=== PATIENT | female | born 1975 | race Caucasian/White ===

== ENCOUNTER 2016-12-09 18:39 | Inpatient (IN) | payer MEDICAID ==
[~2016-12-09] VITALS: Ht 158.8 cm; Wt 67.3 kg
--- NOTE | ~2016-12-09 | ER ---
PATIENT'S NAME: KEHINDE [facility] AGE: 41 Y [address] ROOM: [address] [address] [place] [facility] [place]: 12/09/2016 ER/Outpatient Report DISCHARGE DATE: FAMILY PHYSICIAN: Perico Cavazos MD ATTENDING PHYSICIAN: Júnior Marsh Time of Arrival: 1835 hours. Time of Evaluation: 1835 hours. CHIEF COMPLAINT: Abdominal pain. HISTORY OF PRESENT ILLNESS: The patient is a 41-year-old female, who presents to the emergency department today with a chief complaint of abdominal pain. She reports that it started last night initially. It kind of went away and then came back at 1330 hours today. She reports some nausea, vomiting 7-8 times. Denies any diarrhea or constipation. No fevers or chills. No blood in her stool, no dark tarry stools. Denies any burning with urination or pain with urination. It is crampy-type pain in the midepigastric, radiates down throughout her belly. PAST MEDICAL HISTORY: Colon cancer, radiation therapy with no chemo, insulin-dependent diabetes, epilepsy, seizure disorder, leukemia in 2013, gastroesophageal reflux, and dyslipidemia. PAST SURGICAL HISTORY: x2, colonoscopy, and ganglion cyst. SOCIAL HISTORY: The patient smokes half pack per day for the last 30 years. Denies any alcohol or illicit drug use. ALLERGIES: LATEX AND PROZAC. MEDICATIONS: Please see list. REVIEW OF SYSTEMS: All systems are reviewed by myself and are negative with the exception of those discussed in HPI and past medical history. PHYSICAL EXAMINATION: VITAL SIGNS: Weight 65.4 kg, blood pressure 115/77, pulse 102, respiratory PATIENT'S NAME: KEHINDE [facility] AGE: 41 Y [address] ROOM: [address] [address] [place] [facility] [place]: 12/09/2016 ER/Outpatient Report DISCHARGE DATE: FAMILY PHYSICIAN: Perico Cavazos MD ATTENDING PHYSICIAN: Júnior Marsh rate 16, temperature 98.3, oxygen saturation 97% on room air. GENERAL: The patient is a 41-year-old female, who appears stated age, in mild acute distress. HEENT: Head: Normocephalic, atraumatic. Pupils are equal, round, and reactive to light and accommodation. Extraocular motions are intact. Mucous membranes are mildly dry. NECK: Supple. There is no nuchal rigidity. CARDIOVASCULAR: Tachycardic. No murmurs, rubs, or gallops. LUNGS: Clear to auscultation bilaterally. No wheezes, rales, or rhonchi. ABDOMEN: Soft. Moderate tenderness to palpation in the midepigastric region. There is no rebound, rigidity, or guarding. Positive bowel sounds. MUSCULOSKELETAL: The patient moves all 4 extremities. 5/5 muscle strength. SKIN: Warm dry eyes. There are no rashes or lesions noted. LABORATORY DATA AND X-RAYS: Labs and x-rays are obtained. CBC is normal except for white blood cell count of 12.3, hematocrit 29.0, 7% bands. PTT is normal, PT is 11.5, INR is normal. Lactate is normal. Urine hCG is negative. Urinalysis shows 100 leukocyte esterase, 30 protein, 100 glucose, 10-20 wbc's, 20-50 epithelials, few bacteria. Lactate is normal. CMP is normal except for potassium 2.9, creatinine 1.2, glucose 283, otherwise unremarkable. Her LFTs are normal. Total bilirubin is normal. Lipase is elevated at 5477, procalcitonin is less than 0.05. EKG is obtained, is interpreted by myself, shows sinus rhythm with a rate of 95, normal axis, normal interval. No ST elevation, ST depression, T- wave inversion. CT scan of the abdomen and pelvis is obtained without IV contrast. I have discussed the results with radiologist, shows acute pancreatitis. IMPRESSION: 1. Acute pancreatitis. 2. Hypokalemia. 3. Poorly controlled diabetes mellitus. 4. History of dyslipidemia. 5. Initial visit. EMERGENCY DEPARTMENT COURSE: The patient was brought back to the examination room. Seen and evaluated by myself. IV is established. Laboratory analysis and imaging are obtained as described above. The patient is given a liter of normal saline. She was given 50 mcg of fentanyl IV, given 4 mg of Zofran IV, as well as another 50 mg of fentanyl. She was given another L of normal saline. She was then given 2 doses of Dilaudid 0.5 mg IV. I have discussed results with the patient and her significant other is at the bedside. The patient was written for 40 mEq of potassium chloride IV over 4 hours. I have recommended admission to the hospital for further evaluation and treatment management. The patient is PATIENT'S NAME: IAN BUSBY [facility] AGE: 41 Y [address] ROOM: [address] [address] [place] [facility] [place]: 12/09/2016 ER/Outpatient Report DISCHARGE DATE: FAMILY PHYSICIAN: Perico Cavazos MD ATTENDING PHYSICIAN: Júnior Marsh. Her questions were answered. I have discussed the case with Dr. Marsh, who is on-call for the patient's primary care doctor, Dr. Perico Cavazos. He has seen and evaluated the patient down here in the emergency department. He does agree to accept the patient. DISPOSITION: The patient is admitted under the care of Dr. Marsh in stable condition. DO JESSI MENDIETA/susan /[id number] d: 12/10/16527 t: 12/14/16603, OUTPATIENT REPORT
--- NOTE | ~2016-12-09 | DS ---
PATIENT'S NAME: IAN BUSBY [facility] AGE: 41 Y [address] ROOM: [address] [place], [place] [address] LOCATION: [facility] ADMIT DATE: 12/09/2016 Discharge Summary DISCHARGE DATE: 12/15/2016 FAMILY PHYSICIAN: Perico Cavazos MD ATTENDING PHYSICIAN: Jennifer Wilson CONSULTING PHYSICIAN: Dr. Simpson. DISCHARGE DIAGNOSES: 1. Acute pancreatitis. 2. Hypertriglyceridemia. 3. Diabetes mellitus, type 2, poorly-controlled. 4. Anemia. 5. Hypokalemia. 6. Seizure disorder. 7. Gastroesophageal reflux disease. DISCHARGE MEDICATIONS: 1. Amitriptyline 100 mg p.o. q.h.s. 2. TriCor 145 mg p.o. q.h.s. 3. Lasix 20 mg p.o. daily. 4. Neurontin 300 mg p.o. t.i.d. 5. Insulin Levemir 40 units subcu q.h.s. once daily. 6. Insulin subcu t.i.d. with meals per home sliding scale. 7. Keppra 750 mg 2 tablets p.o. twice daily. 8. Prilosec 20 mg p.o. daily. 9. Seroquel 20 mg p.o. q.a.m. 10. Seroquel 200 mg one and one half tab p.o. q.h.s. 11. Senna 1 tablet p.o. twice daily OTC. 12. Topamax 50 mg p.o. t.i.d. 13. ASA 81 mg p.o. daily. 14. Clonazepam 0.5 mg p.o. t.i.d. 15. Healthy Eye caplets 1 cap p.o. daily. 16. Claritin 10 mg p.o. daily. 17. Fish oil 2000 mg p.o. twice daily. 18. Calcium plus vitamin D 1 tablet p.o. b.i.d. 19. Cholecalciferol 10,000 units p.o. daily. HOSPITAL COURSE: Please refer to the admitting H and P. The patient was admitted on 12/09/2016. She was placed on an aggressive sliding scale of insulin. She was placed on the SPORTS ANCHOR of Dilaudid. The patient had an ultrasound of the abdomen on 12/10/2016, which showed diffusely echogenic liver consistent with fatty infiltration and a dilated portal venous confluence very likely indicating portal hypertension with mild splenomegaly, but no ascites. No gallstones. There was question of a urinary tract PATIENT'S NAME: IAN BUSBY [facility] AGE: 41 Y [address] ROOM: [facility] [place] [address] [facility] ADMIT DATE: 12/09/2016 Discharge Summary DISCHARGE DATE: 12/15/2016 FAMILY PHYSICIAN: Perico Cavazos MD ATTENDING PHYSICIAN: Jennifer Wilson infection, but the culture actually grew out contaminants. perinatal educator also came and visited with the patient. Ultimately, the patient was weaned off the SPORTS ANCHOR and continued with Percocet orally for pain management. The patient did have a drop in her hemoglobin down to 7.1 and recheck was 7.5. Occult stool testing was negative x2. GI was consulted. It was thought this was most likely a dilutional decrease in the hemoglobin. The stools were then tested for occult blood and came back as negative. The patient was ultimately transfused with 1 unit of packed RBCs on December 13 for hemoglobin of 6.7. The patient tolerated the blood transfusion well. The patient had a CT of the abdomen and pelvis done given her acute anemia. They noted a moderate inflammatory changes of the pancreas without evidence of hemorrhage and mild- to-moderate ascites with bilateral pleural effusions and the fatty liver was again noted with probable portal hypertension. After receiving 1 unit of packed RBCs, hemoglobin was back to 8.5. On the day of discharge, methemoglobin was 9.6. There was no evidence of blood loss. We suggested this to be continued to be followed as an outpatient. On 12/15/2016, her abdominal pain is improving, the patient was taking in oral, it was felt she was stable for discharge to her home with followup as an outpatient. Again, the hemoglobin was improving. I felt the ascites and pleural effusions seen on the CAT scan from the 13 of December was secondary to the pancreatitis and again can be followed up as outpatient. The patient is discharged to her own home on 12/15/2016. She is on no restrictions as far as activity. Weightbearing as tolerated. She should follow a diabetic diet. She should follow up with Dr. Cavazos on Wednesday12/21/2016. Appointment has been made for her at 10:45 a.m. The patient voiced understanding of this discharge plan. Discharge of this patient took greater than 35 minutes coordinating the discharge, reviewing medicines, and reviewing with the patient. SARAH ARCHER PA-C FOR MD NAPOLEON LINDO/susan /[id number] d: 12/16/16 0449 t: 12/30/16 1642, DISCHARGE SUMMARY
--- NOTE | ~2016-12-09 | HP ---
PATIENT'S NAME: IAN BUSBY [facility] AGE: 41 Y [address] ROOM: [address] [place] [id number] [place] [facility] [place]: 12/09/2016 History & Physical DISCHARGE DATE: FAMILY PHYSICIAN: Perico Cavazos MD ATTENDING PHYSICIAN: Nena Marsh DATE OF SERVICE: CHIEF COMPLAINT: Severe abdominal pain. HISTORY OF PRESENT ILLNESS: The patient is a 41-year-old patient of Dr. Perico Cavazos's who is very poorly compliant with coming into the clinic who presented to the emergency room by squad with severe abdominal pain. She states this came on this afternoon and progressively it has gotten worse. She started to have some vomiting this afternoon as well. She was diagnosed with pancreatitis in the ER; although, has never had a history of that. Her control of her multiple medical problems has been hampered by the fact she is very poorly compliant with actually seeing Dr. Cavazos in the clinic. Her last checkup for diabetes in the clinic was in December of 2015. Her A1c at that time was 10%. Apparently, she sees Eleni Martinez and has had a A1c with the last one being done in May, but that was elevated at 10.8. She is not able to tell me her insulin at this point; so, we are going to have get that from the pharmacy. She was found to be significantly hypokalemic as well, Of note, she has a history of a markedly elevated lipid panel with the last cholesterol being done in December of 2015. Her cholesterol at that time was 592 with triglycerides of 4201 and HDL of 27. Her VLDL was 840. PAST MEDICAL HISTORY: Significant for poorly-controlled type 2 diabetes mellitus, history of epilepsy, GERD, hypertriglyceridemia, sarcoidosis, as well as some psychiatric issues. They are not clearly delineated in the chart. MEDICATIONS: Her chronic medications include: 1. Topiramate 50 mg 3 times a day. 2. Levetiracetam 750 2 tablets twice a day. 3. Loratadine 10 mg one a day. 4. Omeprazole 20 mg one a day. 5. Vitamin D 5000 units 2 tablets at noon. 6. Aspirin 81 mg one a day. 7. Calcium plus D 1 tab in the morning and in the evening. 8. Clonazepam 0.5 mg 3 times a day. 9. TriCor 145 one p.o. q.h.s. PATIENT'S NAME: IAN BUSBY [facility] AGE: 41 Y [address] ROOM: [address] [address] [place] [facility] [place] DATE: 12/09/2016 History & Physical DISCHARGE DATE: FAMILY PHYSICIAN: Perico aCvazos MD ATTENDING PHYSICIAN: Nena Marsh 10. Amitriptyline 100 mg 1 p.o. q.h.s. 11. Quetiapine 200 mg 1 tab in the morning and 1.5 at bedtime. 12. Furosemide 20 mg one tablet daily. 13. Fish oil 1000 mg 2 tablets twice a day. 14. Gabapentin 300 mg one p.o. t.i.d. 15. She does take NovoLog and some other sort of insulin she is not sure what, but it sounds like maybe it is Levemir. She is unsure of her dosages at this point. ALLERGIES: INCLUDE LATEX GLOVES AND PROZAC. PRIOR SURGERIES: She has had x2. She has had 2 colonoscopies one in 2001 and one in 2013 and intestinal surgery in 2001 and a vaginal delivery. She also has a history of an ascending colon cancer, status post radiation therapy, PTSD, history of low back pain, and a prior history of [id number] DVT. SOCIAL HISTORY: She is here with her . She is a current everyday caffeine user and a current everyday smoker. Denies any alcohol use at all as far as risk factor for pancreatitis. FAMILY HISTORY: Alzheimer's disease in paternal grandfather, breast cancer in aunt, mother, and sister, type 2 diabetes mellitus in her father, and history of stroke in her paternal grandmother. REVIEW OF SYSTEMS: Really difficult to obtain as the patient is a very poor historian. Specifically, she denies any significant chest pain or pressure, shortness of breath, orthopnea, or PND. She has had no melena, hematochezia, or bright red per rectum. No urinary symptoms at this point. PHYSICAL EXAMINATION: VITAL SIGNS: Weight 65.4 kg, taken, blood pressure 115/77, pulse 102, respirations 16, temperature 98.3, and O2 saturation 97% on room air. GENERAL: Nontoxic-appearing female in mild amount of distress, secondary to pain. HEENT: Head: Normocephalic and atraumatic. Ears, TMs are clear and intact bilaterally. Nose patent. Throat clear. NECK: Supple without lymphadenopathy, JVD, thyromegaly, or bruits. HEART: Regular rate and rhythm without audible murmur. PATIENT'S NAME: IAN BUSBY [facility] AGE: 41 Y [address] ROOM: [place] [address] [place] [facility] [place] DATE: 12/09/2016 History & Physical DISCHARGE DATE: FAMILY PHYSICIAN: Perico Cavazos MD ATTENDING PHYSICIAN: Nena Marsh LUNGS: Clear to auscultation bilaterally without wheezes, rhonchi, or rales. ABDOMEN: Soft, markedly tender in the epigastric region, and kind of globally throughout, she actually hand waves several times during the exam. EXTREMITIES: No clubbing, cyanosis, or edema. NEURO: No focal deficits. LABORATORY DATA: Her lactate level is 1.1. Her urinalysis shows 10-20 white cells, negative for reds, 20-50 epi's, beta HCG is negative, few bacteria; so, clearly this is contaminated. Sodium 140, potassium 2.9, chloride 106, CO2 23, glucose 283, BUN 16, creatinine 1.2, total protein 6.9, albumin 3.8, bilirubin 0.5, alk phos 44, AST 12, ALT 26, estimated GFR is 49, and lipase is 5477. It should be noted that the last time in the clinic that she had a GFR done it was 55.3 in May of 2016. Procalcitonin level is less than 0.05. White cell count is 12.3, hemoglobin 10.2, hematocrit 29.0%, and platelet count 264,000. PTT is 26, PT is 11.5, INR is 1.1. CT of the abdomen and pelvis shows acute pancreatitis with possible gallstones, ultrasound could be better to evaluate that, but has not showed to have any biliary dilatation. ASSESSMENT AND PLAN: A 41-year-old white female with the following problems: 1. Acute pancreatitis, most likely brought on by her markedly elevated triglyceride level. The last time triglycerides were checked they were greater over 4000 and that was while she was taking TriCor. Clearly, this is not a good option for her to continue with this as it is not controlling it; however, we will go ahead and recheck the triglycerides and fasting lipid in the morning and see what that looks like. Certainly, she has a primary disorder of lipoprotein metabolism and in terms of triglycerides are greater than 500, they can increase risk of pancreatitis especially when they are this high. Maybe need to consider apheresis to get that triglycerides down depending where they are at in the morning. We will watch to keep her n.p.o., give her intravenous fluids, give her pain support, nausea medication, and then see how she does with this. 2. Severe hypertriglyceridemia. Again, this is more than likely represents a primary hypertriglyceridemia possibly a genetic disorder of lipid mutation with a Marlon classification 1, which is probably the most likely source of this. We will defer on further treatment at that to Dr. Cavazos. 3. Poorly-controlled insulin-dependent type 2 diabetes mellitus with most recent A1c in May.8. Clearly, she needs to continue to work actually with Dr. Cavazos not just with Eleni Martinez to try and get those blood sugars under better control. We will just go to sliding scale for now to keep that in check with Accu-Cheks q.i.d. in the interim. 4. History of gastroesophageal reflux disease, overall stable. PATIENT'S NAME: IAN BUSBY [facility] AGE: 41 Y [address] ROOM: [place] [address] [place] [facility] [place] DATE: 12/09/2016 History & Physical DISCHARGE DATE: FAMILY PHYSICIAN: Perico Cavazos MD ATTENDING PHYSICIAN: Nena Marsh 5. A questionable history of sarcoid, no further treatment at this point. 6. History of epilepsy, obviously, we will need to watch getting her seizure medicines [id number], but for now, we will keep her absolutely n.p.o. 7. Undefined psychiatric illness. We will see if we can get more records as far as what her actual psych history is. Defer that to Dr. Cavazos. There is no documentation in the clinic chart regarding that. 8. Posttraumatic stress disorder and borderline personality disorder. Continue with the current psychiatric medications. 9. History of peripheral neuropathy, secondary type 2 diabetes mellitus. Continue to work towards tight blood sugar control. 10. History of colon cancer. Defer at this time with that. Clearly with her history of her severe elevated triglycerides, the morbidity and mortality with this type of pancreatitis is higher. She does sound like she did have some stones present, but nothing that would suggest that this is actually a gallstone related issues. Both her and her voiced understanding with that plan at this time. NENA MARSH MD TAB/modl /[id number]: [id number] T: [id number] HISTORY & PHYSICAL
[~2016-12-09 18:39] MED LIST changes: -LEVAQUIN750 MG PO; -NAPROSYN250 MG PO; -NEURONTIN100 MG PO; -NYSTATIN1 EAC1; -SENOKOT-S TABL1 EACH PO; -TESSALON PERLE100 MG PO; -ZYVOX600 MG PO
[2016-12-09 19:12] LABS: BILIRUBIN URINE NEGATIVE (NEGATIVE); BLOOD URINE NEGATIVE /UL (NEGATIVE); COLOR URINE YELLOW (YELLOW); GLUCOSE URINE 100 mg/dL (NEGATIVE); KETONE URINE NEGATIVE (NEGATIVE); LEUKOCYTES URINE 100 /UL (NEGATIVE); NITRITE URINE NEGATIVE (NEGATIVE); PROTEIN URINE 30 mg/dL (NEGATIVE); TURBIDITY URINE 1+ (CLEAR); UROBILINOGEN URINE NORMAL (NORMAL)
[2016-12-09 19:19] LABS: HEMOGLOBIN 10.2 g/dL (10.0-15.0); MCH 32.9 pg (27.0-34.0); MCHC 35.2 gm/dL (32.0-36.5); MCV 93.5 fl (83.0-98.0); MPV 10.1 fl (9.4-12.4); PLATELET COUNT 264 K/uL (150-450); RDW-CV 15.6 % (11.9-14.6); WBC 12.3 K/uL (4.0-11.0)
[2016-12-09 19:23] LABS: BACTERIA URINE FEW (NEGATIVE); EPITHELIAL URINE 20-50 #/HPF (NEGATIVE); RBC URINE NEGATIVE #/HPF (NEGATIVE)
[2016-12-09 19:27] LABS: INR - (THERAPEUTIC) 1.1 (0.9-1.1); PROTIME 11.5 SECONDS (9.6-11.1); PTT 26 SECONDS (25-32)
[2016-12-09 19:35] LABS: ALBUMIN 3.8 gm/dL (3.5-5.0); CALCIUM 9.2 mg/dL (8.5-10.5); CREATININE 1.2 mg/dL (0.5-1.1); TOTAL PROTEIN 6.9 g/dL (6.0-8.4)
[2016-12-09 19:39] LABS: ANION GAP 13.9 (10.0-19.0); POTASSIUM 2.9 mMol/L (3.7-5.1); TOTAL BILIRUBIN 0.5 mg/dL (0.0-1.5)
[2016-12-09 20:01] LABS: ABSOLUTE NEUTROPHIL CT (ANC) 11.3 K/uL (1.8-7.8); BANDED NEUTROPHIL # 0.9 K/uL (0.0-0.1); BANDED NEUTROPHILS % 7 %; LYMPHOCYTE # 0.4 K/uL (0.8-4.0); LYMPHOCYTE % 3 %; MONOCYTE # 0.2 K/uL (0.0-1.0); SEGMENTED NEUTROPHIL # 10.5 K/uL (1.8-7.8); SEGMENTED NEUTROPHIL % 85 %
[2016-12-10 06:04] LABS: BASOPHIL % 0.2 %; EOSINOPHIL # 0.2 K/uL (0.0-0.5); EOSINOPHIL % 1.3 %; HEMATOCRIT 31.1 % (33.0-46.0); HEMOGLOBIN 10.3 g/dL (10.0-15.0); IMMATURE GRANULOCYTE # 0.1 K/uL (0.0-0.3); LYMPHOCYTE # 0.6 K/uL (0.8-4.0); LYMPHOCYTE % 4.2 %; MCH 32.5 pg (27.0-34.0); MCHC 33.1 gm/dL (32.0-36.5); MCV 98.1 fl (83.0-98.0); MONOCYTE # 0.8 K/uL (0.0-1.0); MONOCYTE % 5.7 %; MPV 10.5 fl (9.4-12.4); NEUTROPHIL # (ANC) 11.9 K/uL (1.8-7.8); NEUTROPHIL % 87.6 %; NRBC % 0.1 /100WBC (0-0.00); PLATELET COUNT 298 K/uL (150-450); RBC 3.17 M/uL (3.50-5.50); RDW-CV 16.4 % (11.9-14.6); WBC 13.6 K/uL (4.0-11.0)
[2016-12-10 06:26] LABS: ALBUMIN 3.5 gm/dL (3.5-5.0); ANION GAP 12.4 (10.0-19.0); CREATININE 1.1 mg/dL (0.5-1.1); POTASSIUM 3.4 mMol/L (3.7-5.1); TOTAL PROTEIN 6.7 g/dL (6.0-8.4)
[2016-12-10 06:30] LABS: TOTAL BILIRUBIN 0.8 mg/dL (0.0-1.5)
--- NOTE | 2016-12-10 07:21 | NUR ---
SIGNIFICANT EVENT: Patient oriented, more sleepy since MOTOR RUNNER started. IV to L) FA - NS at 125. Dilaudid MOTOR RUNNER is 0.2 demand, no bolus, 8 minute lockout. BF at bedside. VSS on 1L. KCl also running. NPO. Cooperative with cares.
--- NOTE | 2016-12-10 13:44 | NUR ---
Met with Alicia at bedside this morning. Introduced myself and explained to her my role in her care. Alicia states she lives at [facility]. She has a fiance named Bryan and he helps take care of her. She states that Bryan works department head and if he is not at work he is at her apartment with her. She states she has three children, a 21 yo daughter that lives with a grandparent, a 17 and 12 year olds that live with their father. She states that she is able to care for herself and take care of all her needs on her own. Her plan is to return to her apartment at discharge. I will continue to follow and offer supports as needed.
--- NOTE | 2016-12-10 15:49 | NUR ---
Significant Event: Pt c/o constant pain when asked, drowsy and sometimes can't keep her eyes open. 1 assist to br. NPO. Concerned that cognitively pt doesn't understand pain management and proper use of CLINICAL TRANSPLANT COORDINATOR. Boyfriend at bedside, very anxious gentleman and hovers over her frequently. Liver enzymes elevated. Dr. Ton Cavazos called, new order to have hospitalists to consult and take over pt cares. To dc CLINICAL TRANSPLANT COORDINATOR, but pt started to cry and scream and refused to have it removed. New orders from hospitalists: continue CLINICAL TRANSPLANT COORDINATOR, RUQ US, lipid panel now, increase IV to 250ml/hr for 24 hrs then decrease to 200ml/hr. May have ice chips. Ambulate TID. Follow up:
--- NOTE | 2016-12-11 04:26 | NUR ---
Pt arrived to floor at 2145 accompanied by staff and significant other. Pt A&Ox3, follows commands, strength equal bilat, PERRL. No seizures this shift. Insulin gtt protocol as ordered. Diluadid HIGH PRESSURE KETTLE OPERATOR 0.2 mg demand only with 8 min lockout, controlling pain. NPO except ice chips. Cooperative with cares.
--- NOTE | 2016-12-11 07:42 | NUR ---
SIGNIFICANT EVENT: [facility] staff came to [facility] to take patient by bed at approx 2130. Report given to [facility] nurse, Shania. Alert & oriented. Patient is tachycardic, other VSS on 1L. Dilaudid SURVEILLANCE OBSERVER infusing .2 demand, 8 min lockout. Seizure event at approx 1745 - patient indicates she has epilepsy, has not been taking oral meds d/t NPO status, nausea. PIV to L) arm infusing NS at 250 mL/hr. Sig other at bedside, very attentive. Cooperative with cares.
--- NOTE | 2016-12-11 11:44 | NUR ---
Diabetes consult: Patient is well [facility] to the [facility] and previously saw KAYY Ley for insulin samples and management. The patient cannot recall the names of the insulin she is taking at home. She tells me that she has a long acting insulin and a short acting insulin. She states she takes 60 units of the long acting twice daily and 65 units of the short acting with meals. I probed further inquiring how long a short acting insulin pen lasts her and she tells me "several days". The patient became increasingly more anxious the more questions I asked. I doubt the patient the excessive dose of 65 units with meals. The patient last saw Eleni Potter on 08/2016. At the time, dictation indicates the patient was taking Toujeo 80 units at HS and Novolog correction. A custom correction scale was found in the patients old records and transcribed to the physician progress note for review. Currently the patient's blood sugar are well controlled. She is on the insulin gtt at this time. Current A1C is 6.7%. Insulin doses were shared with the patient's primary nurse.
[2016-12-11 12:19] LABS: BILIRUBIN URINE NEGATIVE (NEGATIVE); BLOOD URINE NEGATIVE /UL (NEGATIVE); COLOR URINE YELLOW (YELLOW); GLUCOSE URINE NEGATIVE (NEGATIVE); KETONE URINE NEGATIVE (NEGATIVE); LEUKOCYTES URINE 100 /UL (NEGATIVE); NITRITE URINE NEGATIVE (NEGATIVE); PH URINE 6.5 (4.0-8.0); PROTEIN URINE NEGATIVE (NEGATIVE); SPEC GRAVITY URINE 1.005 (1.003-1.035); TURBIDITY URINE CLEAR (CLEAR); UROBILINOGEN URINE NORMAL (NORMAL)
[2016-12-11 12:32] LABS: RBC URINE NEGATIVE #/HPF (NEGATIVE)
[2016-12-11 12:33] LABS: BACTERIA URINE MODERATE (NEGATIVE); MUCUS URINE 1+ (NEGATIVE)
--- NOTE | 2016-12-11 16:55 | NUR ---
Significant Event:PT IS AAOX3. MAEW. NO C/O NUMBNESS OR TINGLING. NO SEIZURES NOTED TODAY. LUNG SOUNDS ARE CLEAR AND DIMINISHED. ON RA. ETCO2 MONITORING. C/O EPIGASTRIC AND ABDOMINAL PAIN. ON MANUFACTURING SHIFT SUPERVISOR. DEMAND DECREASE DUE TO PATIENT BECOMING VERY DROWSY. ALSO STARTED BECOMING HYPOTENSIVE 92/60. IV TO L) HAND AND FA RUNNING. ON CLEAR LIQUID DIET. Q2H ACCUCHECKS. INSULIN GTT RUNNING. ORDER BY MD FOR NO BED ALARM. Follow up:MONITOR LOC AND BP
[2016-12-12 04:46] LABS: BASOPHIL % 0.5 %; EOSINOPHIL # 0.3 K/uL (0.0-0.5); EOSINOPHIL % 5.1 %; IMMATURE GRANULOCYTE % 0.7 %; LYMPHOCYTE # 0.4 K/uL (0.8-4.0); LYMPHOCYTE % 6.1 %; MCV 99.5 fl (83.0-98.0); MONOCYTE # 0.5 K/uL (0.0-1.0); MONOCYTE % 7.9 %; MPV 10.3 fl (9.4-12.4); NEUTROPHIL # (ANC) 4.7 K/uL (1.8-7.8); NEUTROPHIL % 79.7 %; NRBC % 0 /100WBC (0-0.00); RDW-CV 16.7 % (11.9-14.6); WBC 5.9 K/uL (4.0-11.0)
[2016-12-12 04:47] LABS: HEMOGLOBIN 7.1 g/dL (10.0-15.0); MCH 33.6 pg (27.0-34.0); MCHC 33.8 gm/dL (32.0-36.5); PLATELET COUNT 204 K/uL (150-450); RBC 2.11 M/uL (3.50-5.50)
[2016-12-12 05:06] LABS: ALBUMIN 2.5 gm/dL (3.5-5.0); BLOOD UREA NITROGEN 6 mg/dL (6-24); CO2 21 mMol/L (22-32); CREATININE 0.8 mg/dL (0.5-1.1); ESTIMATED GFR (MDRD EQUATION) > 60; PHOSPHORUS 2.6 mg/dL (2.5-4.9)
[2016-12-12 05:09] LABS: ANION GAP 11.8 (10.0-19.0); CALCIUM 7.1 mg/dL (8.5-10.5); CHLORIDE 117 mMol/L (96-110); POTASSIUM 2.8 mMol/L (3.7-5.1); SODIUM 147 mMol/L (135-145)
[2016-12-12 06:10] LABS: HEMATOCRIT 22.3 % (33.0-46.0)
[2016-12-12 06:11] LABS: HEMOGLOBIN 7.5 g/dL (10.0-15.0)
--- NOTE | 2016-12-12 07:21 | NUR ---
Significant Event: Patient is alert and oriented x3. Follows commands. Pupils are 3mm and brisk. Moderate strength. Sinus rhythm. Room Air. Clear liquid diet. Abdomen is slightly firm-pain is localized in the abd and the lower back. Insulin drip-Accu checks q2h. PIV in left hand and FA with D5 1/2 NS at 200 ml/hr. The patients mood changes easily- will become defensive if she can hear people talking outside the room. Up with 1A and GB. Follow up: GI consult today.
[2016-12-12 18:31] LABS: HEMATOCRIT 22.3 % (33.0-46.0)
[2016-12-12 18:32] LABS: HEMOGLOBIN 7.2 g/dL (10.0-15.0)
[2016-12-12 18:46] LABS: ALBUMIN 2.7 gm/dL (3.5-5.0); BLOOD UREA NITROGEN 4 mg/dL (6-24); CO2 18 mMol/L (22-32); CREATININE 0.8 mg/dL (0.5-1.1); ESTIMATED GFR (MDRD EQUATION) > 60; MAGNESIUM 1.5 mg/dL (1.3-2.6); PHOSPHORUS 2.2 mg/dL (2.5-4.9); POTASSIUM 3.6 mMol/L (3.7-5.1)
[2016-12-12 18:48] LABS: ANION GAP 13.6 (10.0-19.0); CALCIUM 7.2 mg/dL (8.5-10.5); CHLORIDE 119 mMol/L (96-110); SODIUM 147 mMol/L (135-145)
--- NOTE | 2016-12-12 19:00 | NUR ---
Significant Event: Patient's v/s stable. She is alert and orientated. On room air, sinus to sinus tachycardia. Patient has IV to left hand and left forearm and left inner arm running D5NS at 200ml/hr and insulin drip per protcol. Patient also recieved 80meq IV potassium chloride. Had bowel movement. Pain controlled by PO medication. Follow up: Continue to monitor.
[2016-12-13 05:01] LABS: HEMOGLOBIN 6.7 g/dL (10.0-15.0)
--- NOTE | 2016-12-13 05:24 | NUR ---
Significant Event: Patient is alert and oriented x3. Follows commands. Denies N/T. PERRLA-3mm and brisk. Moderate strength. SR- can get tachycardic at times when anxious. Room air. Soft diet. Last BM 3/4. Up with 1A and GB. PIV in left hand with d5 1/2 NS at 200. Accu checks AC-TID. Abd is round and distended. Takes pills whole with water. Patient has requested to have nurse to nurse and doctor conversations in room- that way she can be apart of what is happening. Follow up: Pain control. Accu checks.
[2016-12-13 12:22] LABS: HEMATOCRIT 23.5 % (33.0-46.0); MCH 33.2 pg (27.0-34.0); MCHC 32.3 gm/dL (32.0-36.5); MCV 102.6 fl (83.0-98.0); MPV 10.1 fl (9.4-12.4); PLATELET COUNT 202 K/uL (150-450); RBC 2.29 M/uL (3.50-5.50); RDW-CV 16.4 % (11.9-14.6); WBC 3.7 K/uL (4.0-11.0)
[2016-12-13 12:23] LABS: HEMOGLOBIN 7.6 g/dL (10.0-15.0)
[2016-12-13 12:51] LABS: LYMPHOCYTE # 0.2 K/uL (0.8-4.0); LYMPHOCYTE % 6 %; MONOCYTE # 0.3 K/uL (0.0-1.0); SEGMENTED NEUTROPHIL % 81 %
--- NOTE | 2016-12-13 13:21 | NUR ---
A - PT SCREENED D/T LOS. HT: 62" WT: 147# BMI: 25.9 LABS: ACCUCHECK WNL-REAS, NA 147, K+ 3.6, GLU 102, BUN/CR 4/0.8, ALB 2.7, PHOS 2.2, AMYLASE 123, LIPASE 801, WBC 3.7, HGB/HCT 7.6/23.5 MEDS: KEPPRA, LEVEMIR, BACTRIM DX, PROTONIX, NAUSEA, D5NS DIET: SOFT (NO TEETH). INTAKE: MOSTLY 75-100% NEEDS: 1654-0217 KCAL (20-25 KCAL/KG), 67-80 G PRO (1-1.2 G/KG), 2010 ML FLUID (30 ML/KG) D - NO NUTRITION RELATED DIAGNOSIS IDENTIFIED AT THIS TIME. I - GOAL FOR INTAKE TO REMAIN 75-100% FOR DURATION OF STAY. M/E - WILL ASSIST NEEDED.
[2016-12-13 17:02] LABS: HEMATOCRIT 27.7 % (33.0-46.0)
--- NOTE | 2016-12-13 19:27 | NUR ---
Significant Event: Alert and oriented X 3. Mild MR. Patient needs verbal cues throughout cares. All discussion concerning patient needs to be done in front of patient. Patient has a fear that everyone is talking about her. Explain what you are doing and giving when with patient. AC Accuchecks moderate sliding scale. Allow patient to poke her own finger for test. Patient also prefers to inject herself when given insulin. Levemier given at night. 1 unit of blood given for Hgb of 6.7. Patient tolerated blood well. Hgb after transfusion was 9.0. [address] of abdomen & pelvis done today. Results show mild to moderate ascites, mild bilateral PE and mild pancreatitis. IV to left hand, saline locked. Abdomen distended, round, and sore. Last bowel movement 12/12/16. SBP 120's and 130's. HR 70's & 80's. Patient does have mood swings at times. Pleasant and cooperative with cares. Follow up:
--- NOTE | 2016-12-14 04:44 | NUR ---
NEURO: Mild MR. Reported mood swings- did not see that on this shift. A&O. No s/s of seizures this shift. CARDIO: Tele. NSR. No edema. RESP: RA. Clear/diminished. GI/: Regular diet. Accucheck AC. Voids independently. BM last night- last occult sent to lab - negative. SKIN: No skin issues. IV: Left hand. SL. ACTIVITY: Up ad charles in room. PAIN: Percocet Q6H PRN. Last given at 2105. PLAN: Discharge Wednesday.
[2016-12-14 06:16] LABS: HEMATOCRIT 25.9 % (33.0-46.0); HEMOGLOBIN 8.5 g/dL (10.0-15.0)
[2016-12-14 06:46] LABS: ALBUMIN 2.9 gm/dL (3.5-5.0); ANION GAP 14.6 (10.0-19.0); CALCIUM 8.8 mg/dL (8.5-10.5); CHLORIDE 115 mMol/L (96-110); CO2 19 mMol/L (22-32); ESTIMATED GFR (MDRD EQUATION) > 60; PHOSPHORUS 3.4 mg/dL (2.5-4.9); POTASSIUM 3.6 mMol/L (3.7-5.1); SODIUM 145 mMol/L (135-145)
[2016-12-14 06:47] LABS: BLOOD UREA NITROGEN 9 mg/dL (6-24)
--- NOTE | 2016-12-14 19:13 | NUR ---
Significant Event:VSS, rates pain 5-8/10, Percocet 1 tab x 2, last dose at 1340. Abdomen slightly firm, tender to touch. Bowel sounds present, no BM today. No sx activity this shift. Neuros WNL. Follow up:Labs in a.m., possible DC to home
--- NOTE | 2016-12-15 03:09 | NUR ---
Significant Event: Patient is alert and oriented x 3. Denies numbness or tingling. Irritable/anxious at times. C/O pain to abdomen. Received Percocet for pain. PERRL. Moves spontaneously and follows commands. Independent in room. VSS. Afebrile. On room air. Lungs clear. Bowel sounds active. No BM this shift. Abdomen slightly firm and tender to touch. IV SL with no complications. Follow up: home today, pain management
[2016-12-15 04:51] LABS: HEMATOCRIT 28.5 % (33.0-46.0); HEMOGLOBIN 9.6 g/dL (10.0-15.0)
[2016-12-15 05:07] LABS: ALBUMIN 3.2 gm/dL (3.5-5.0); ANION GAP 13.6 (10.0-19.0); CALCIUM 9.5 mg/dL (8.5-10.5); CREATININE 1.1 mg/dL (0.5-1.1); PHOSPHORUS 4.1 mg/dL (2.5-4.9); POTASSIUM 3.6 mMol/L (3.7-5.1)
[2016-12-15] MEDS ORDERED: SENOKOT-S TABL1 EACH PO (11:09)
== END 2016-12-15 12:37 | disposition disaster alternative care site (69) | DRG 439 ==
LOC: GMED 18:39 → GMSU 20:48 → GNTU 20:48
PROVIDERS: Emergency Medicine; Family Medicine; Hospitalist; Physician Assistant; Student in an Organized Health Care Education/Training Program; ADMIT Family Medicine
PROC: 30233N1 Transfusion of Nonautologous Red Blood Cells into Peripheral Vein, Percutaneous Approach (ICD-10-PCS; principal; 2016-12-13)
DX: K85.90 Acute pancreatitis without necrosis or infection, unspecified (principal); N39.0 Urinary tract infection, site not specified; J90 Pleural effusion, not elsewhere classified; R18.8 Other ascites; E11.65 Type 2 diabetes mellitus with hyperglycemia; Z79.4 Long term (current) use of insulin; F17.210 Nicotine dependence, cigarettes, uncomplicated; E87.6 Hypokalemia; G40.909 Epilepsy, unspecified, not intractable, without status epilepticus; K21.9 Gastro-esophageal reflux disease without esophagitis; E78.1 Pure hyperglyceridemia; D86.9 Sarcoidosis, unspecified; Z79.82 Long term (current) use of aspirin; Z85.038 Personal history of other malignant neoplasm of large intestine; Z86.718 Personal history of other venous thrombosis and embolism; F43.10 Post-traumatic stress disorder, unspecified; D64.9 Anemia, unspecified
CPT/HCPCS: J1170; J1940; J1953; J2405; J3010; J3475; J3480; J7030; J7040; J7050; J7121; P9016

== ENCOUNTER → 2016-12-09 | Outpatient (CLI) | payer MEDICAID ==
[~2016-12-09] MED LIST: ACETAMINOPHEN650 M2 PO; ASPIR 8181 MG PO; BACTROBAN 2% OI22 GM TOP; CALCIUM 600 +1 EACH PO; CLARITIN10 MG PO; ELAVIL100 MG PO; ELAVIL50 MG PO; FISH OIL1000 MG PO; GLUCOPHAGE500 MG PO; GLUCOSE1 EACH PO; HEALTHY EYES C1 EACH PO; INVOKANA300 MG PO; K-TAB ER20 MEQ PO; KEPPRA750 MG PO; KLONOPIN0.5 MG PO; KLOR-CON 1010 MEQ PO; LASIX20 MG PO; LASIX40 MG PO; LEVAQUIN500 MG PO; LEVAQUIN750 MG PO; LEVEMIR FL100 UNIT/1 SUB-Q; MAGNESIUM-VIT1 EACH PO; MINIPRESS1 M1 PO; MIRALAX17 GM PO; NAPROSYN250 MG PO; NEURONTIN100 MG PO; NEURONTIN300 MG PO; NICODERM (HABIT14 MG PO; NOVOLOG100 UNIT/M SUB-Q; NYSTATIN1 EAC1; OSCAL + D500 MG PO; PRILOSEC20 M1; PRILOSEC20 MG PO; PROTONIX40 MG PO; PYRIDIUM200 MG PO; SENOKOT-S TABL1 EACH PO; SEROQUEL200 MG PO; SEROQUEL300 MG PO; TESSALON PERLE100 MG PO; THERAGRAN-M1 TAB PO; TOPAMAX50 MG PO; TRICOR 160 MG160 MG PO; TRICOR145 MG PO; TYLENOL325 MG PO; VASCEPA1 GM PO; VITAMIN D1000 UNIT PO; VITAMIN D35000 UNI1 PO; VITAMIN D5000 UNIT; ZYVOX600 MG PO
== END | disposition disaster alternative care site (69) ==
LOC: GAMB 18:17
DX: R10.9 Unspecified abdominal pain (principal); R10.33 Periumbilical pain; G40.909 Epilepsy, unspecified, not intractable, without status epilepticus; Z79.82 Long term (current) use of aspirin; Z79.899 Other long term (current) drug therapy; Z88.6 Allergy status to analgesic agent; Z88.8 Allergy status to other drugs, medicaments and biological substances; Z91.040 Latex allergy status
CPT/HCPCS: A0425; A0427; J1170; J2405; J3010; J7030

== ENCOUNTER 2016-12-29 06:40 | Inpatient (IN) | payer MEDICAID ==
[~2016-12-29] VITALS: Ht 157.5 cm; Wt 63.4 kg
--- NOTE | ~2016-12-29 | ER ---
PATIENT'S NAME: IAN BUSBY [facility] AGE: 41 Y [address] ROOM: [place] [address] LOCATION: GPCU ADMIT DATE: 12/29/2016 ER/Outpatient Report DISCHARGE DATE: FAMILY PHYSICIAN: Perico Cavazos MD ATTENDING PHYSICIAN: RIO CRANE V TIME OF ARRIVAL: 0640 hours. TIME SEEN: 0640 hours. IDENTIFICATION: A 41-year-old female. CHIEF COMPLAINT: Illness. HISTORY OF PRESENT ILLNESS: The patient is a 41-year-old female, who was just hospitalized recently from December 09 to December 15 with acute pancreatitis. Today, she came in by ambulance with complaints of not feeling well. She has had fever, chills, cough which is nonproductive, short of breath, and chest pain. Onset of symptoms 3 days ago. ALLERGIES: TO PROZAC. CURRENT MEDICATIONS: The patient did not bring her list with her but states it is the same as her discharge medications which included. 1. Amitriptyline 100 mg at bedtime. 2. Tricor 145 mg at bedtime. 3. Lasix 20 mg daily. 4. Neurontin 300 mg t.i.d. 5. Levemir insulin 40 units subcu once daily. 6. Insulin sliding scale t.i.d. 7. Keppra 750 two tablets twice daily. 8. Prilosec 20 mg daily. 9. Seroquel 200 mg q.a.m. and 200 mg 1-1/2 tablet at bedtime. 10. Senna twice daily. 11. Topamax 50 mg t.i.d. 12. Aspirin 81 mg daily. 13. Clonazepam 0.5 mg t.i.d. 14. Healthy Eye capsules one daily. PATIENT'S NAME: IAN BUSBY [facility] AGE: 41 Y [address] ROOM: [place] [address] LOCATION: GPCU ADMIT DATE: 12/29/2016 ER/Outpatient Report DISCHARGE DATE: FAMILY PHYSICIAN: Perico Cavazos MD ATTENDING PHYSICIAN: RIO CRANE V 15. Claritin 10 mg daily. 16. Fish oil 2000 international units twice daily. 17. Calcium plus vitamin D b.i.d. 18. Cholecalciferol 10,000 units daily. MEDICAL PROBLEMS: Diabetes, insulin requiring. History of noncompliance, generalized tonic- clonic seizure activity, hypertriglyceridemia, anemia, hypokalemia. History of ascending colon cancer, status post radiation therapy. Gastroesophageal reflux disease, sarcoidosis, depression, PTSD, small DVT in the left calf area. PRIOR SURGERIES: sections x2. Colonoscopy. FAMILY HISTORY: Positive for breast cancer in the patient's mother. SOCIAL HISTORY: The patient lives at home. She has a significant other. Tobacco use, half pack per day for 25 years. Alcohol use, denies. Drug use, denies. She states she stopped smoking 2 weeks ago. REVIEW OF SYSTEMS: All systems reviewed and negative other than what is noted in the HPI. PHYSICAL EXAMINATION: GENERAL: A 41-year-old female, in moderate distress. HEENT: Head: Normocephalic, atraumatic. Ears: TMs translucent, both ears. Eyes: Pupils equal and reactive to light and accommodation. Conjunctivae clear. Nose: Mucosa pink. No lesions. Mouth: No lesions. Pharynx benign. Pharynx mildly erythematous. Mucous membranes are dry. Her tongue is red from punch. NECK: Supple. No lymphadenopathy. No nuchal rigidity. LUNGS: Clear to auscultation. Breath sounds are diminished in the bases. HEART: Sinus tachycardia. No murmur, rub, or gallop. ABDOMEN: Bowel sounds present. Soft, nondistended, nontender. SKIN: [place], warm, and dry. No lesions or rashes noted. NEUROLOGIC: The patient is alert oriented x4. Cranial nerves 2 through 12 grossly intact. Motor strength 5/5 throughout. Sensation is intact to light touch. No lower extremity edema. No calf tenderness. PSYCHIATRIC: The patient has good eye contact. Mood is appropriate. Cognition is diminished which is normal baseline for her. IMAGING: Chest x-ray shows a right lower lobe infiltrate pending Radiology over-read. PATIENT'S NAME: IAN BUSBY [facility] AGE: 41 Y [address] ROOM: [id number] [place], [place] [address] LOCATION: GPCU ADMIT DATE: 12/29/2016 ER/Outpatient Report DISCHARGE DATE: FAMILY PHYSICIAN: Perico Cavazos MD ATTENDING PHYSICIAN: RIO CRANE V Her sats were 88% on room air. We placed on O2 at 2 L per nasal cannula but increased up to 3 L to maintain saturations greater than 90%. Venous pH 7.31, lactate elevated at 6.1, influenza A and B negative. D-dimer elevated at 1.69. Urine hCG negative. Lipase 230. CPK 28, CK-MB less than 0.5, troponin I less than 0.040. HCG less than 1. ProBNP elevated at 986. No previous proBNP available for comparison. Sodium 135, potassium low at 2.7. Previous potassium was 3.6 on December 15. Chloride 96, CO2 of 21, BUN 18, creatinine 2.0 which has bumped from previous creatinine of 1.1 on December 15, blood sugar 700. Liver enzymes are normal. Amylase 19. Procalcitonin elevated at 10.40. UA; specific gravity 1.010, pH 6, otherwise negative UA. Hemoglobin 9.8, most recent hemoglobin was 9.6 on December 15. Hematocrit 28. Normochromic, normocytic indices. Platelets 334, white count 20.2 with left shift 61% segs, 34% bands. Phosphorus 2.4, magnesium 1.6. EKG, sinus tachycardia at 112 beats per minute, nonspecific ST-T wave changes. Serum osmolality 311, serum ketones are negative. Hemoglobin A1c was not repeated as it was recently done at 6.7 on December 10. IMPRESSION AND PLAN: 1. Severe sepsis. 2. Sinus tachycardia secondary to severe sepsis. The patient was given 1 L of IV fluids here in the emergency room bolus and second liter at 250 mL/h. 3. Hypokalemia. Potassium chloride 40 mEq, 250 mL of normal saline to run over 4 hours. A 2nd IV line was initiated. IV Levaquin and Zosyn were initiated per sepsis protocol. Blood pressure remained greater than 90 systolic throughout her stay here in the emergency room. 4. Right lower lobe pneumonia. Antibiotics as noted above. 5. History of pancreatitis, currently today her amylase and lipase are normal. 6. Congestive heart failure with BNP 986. 7. Anemia, stable. 8. Elevated D-dimer and chest pain. No sinus tachycardia. V/Q scan will be ordered and obtained. A CT scan of her chest, abdomen, and pelvis with oral contrast only has been ordered by Dr. Crane. Dr. Crane evaluated the patient in the emergency room. Orders have been written. The patient arrived to the ER at 0640 hours, left for PCU at 0927 hours. 45 minutes of critical care was provided with this patient. SHRUTHI CHRISTINE MD CAR/modl PATIENT'S NAME: IAN BUSBY [facility] AGE: 41 Y [address] ROOM: [place] [address] LOCATION: GPCU ADMIT DATE: 12/29/2016 ER/Outpatient Report DISCHARGE DATE: FAMILY PHYSICIAN: Perico Cavazos MD ATTENDING PHYSICIAN: RIO CRANE V /[id number] d: 12/29/162 t: 01/05/17 1423, OUTPATIENT REPORT
--- NOTE | ~2016-12-29 | CON ---
PATIENT'S NAME: IAN BUSBY [facility] AGE: 41 Y [address] ROOM: [place] [address] LOCATION: GPCU ADMIT DATE: 12/29/2016 Consultation DISCHARGE DATE: FAMILY PHYSICIAN: Perico Cavazos MD ATTENDING PHYSICIAN: RIO CRANE V DATE OF CONSULTATION: 01/03/2017 REFERRING PHYSICIAN: Lalo Jennings MD REFERRING PHYSICIAN: Jose Enrique Chavez MD CONSULTING PHYSICIAN: Benito Chapa MD REASON FOR CONSULTATION: History of colon polyps and history of pancreatitis. HISTORY OF PRESENT ILLNESS: The patient is a pleasant, 41-year-old white female with multiple medical problems who was admitted this time with what appears to be right lower lobe pneumonia. She was getting shortness of breath and was found to be slightly hypotensive as well as hypoxic on admission. She subsequently was placed on antibiotics and improved considerably. Earlier this month, the patient was in the hospital. She had a diagnosis of acute pancreatitis. She has a history of hypertriglyceridemia. The highest triglyceride I have seen is 754. She was in the hospital for several days. She was discharged. During this presentation, she also gave a history of having colon polyp about 13 years ago. This was removed. She had her last colonoscopy 5 years ago. We have been consulted for further advice into this prior history of colon polyps. The patient seems to be recovering well from her pneumonia. She does complain of some abdominal discomfort at this time. PAST MEDICAL HISTORY: Significant for history of ascending colon cancer. Also, the patient describes that she has had a polypectomy and radiation therapy following that. I am not sure where this was done. I questioned her again, she thinks this was again done with the colonoscopy. She denies any history of surgical intervention. She does state that she got one cycle of chemotherapy. Denies any radiation therapy. Her past medical history is also significant for diabetes mellitus type 2 and epilepsy. 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 ROOM: [place] [address] LOCATION: GPCU ADMIT DATE: 12/29/2016 Consultation DISCHARGE DATE: FAMILY PHYSICIAN: Perico Cavazos MD ATTENDING PHYSICIAN: RIO CRANE V disease; hyperlipidemia; sarcoidosis according to the history, the patient denies any such history. PAST SURGICAL HISTORY: Significant for section and colonoscopy. FAMILY HISTORY: She says her multiple uncles and aunts have had cancers of the brain and bone. Apparently, mother had metastatic breast cancer. SOCIAL HISTORY: She lives at home and has 3 children. Smokes half a pack a day. No history of alcohol use or drug use. REVIEW OF SYSTEMS: The patient is a relatively poor historian. However, detailed review of system was done. This was negative other than those mentioned in the History of Present Illness and Past Medical History. ALLERGIES: THE PATIENT IS ALLERGIC TO LATEX AND PROZAC. MEDICATIONS: Her current medications at home included: 1. Aspirin. 2. Clonazepam. 3. Vitamin C. 4. Insulin. 5. Levetiracetam. 6. Keppra. 7. Seroquel. 8. Topamax. 9. Claritin. 10. TriCor. 11. Omeprazole. 12. Fish oil. 13. Gabapentin. 14. Amitriptyline 100 mg at night. 15. Calcium carbonate. 16. Cholecalciferol. 17. Seroquel. 18. Furosemide. 19. Senokot tablets p.r.n. PHYSICAL EXAMINATION: PATIENT'S NAME: IAN BUSBY [facility] AGE: 41 Y [address] ROOM: [id number] [place] [id number] LOCATION: [facility] ADMIT DATE: 12/29/2016 Consultation DISCHARGE DATE: FAMILY PHYSICIAN: Perico Cavazos MD ATTENDING PHYSICIAN: RIO CRANE V GENERAL: Today, she is alert and awake, appears to be in no acute distress. She is having a normal meal. She has moderate Pallor, but no icterus. VITAL SIGNS: Temperature of 98.5 with a T-max of 100.5, pulse is 96 per minute, respirations are 24, and blood pressure 107/57. NECK: No masses are felt. No thyromegaly is felt. HEAD AND ENT: Oral cavity is normal. Nasal passages are clear. Pupils equal, round, and reactive to light appropriately. CHEST: She has slightly decreased breath sounds in the right lower lobe. Otherwise, unremarkable. No wheezing or rhonchi. CARDIOVASCULAR: S1 and S2. Peripheral pulses are palpable and normal. ABDOMEN: Soft. There is mild epigastric tenderness. No rigidity, guarding, or rebound. MUSCULOSKELETAL: No obvious areas of deformities are seen. NEUROLOGICAL: Grossly nonfocal. LABORATORY DATA: She had a chest x-ray done. The chest x-ray reveals dense parenchymal opacities in the medial right upper lung and right lung base, slight improvement in the interstitial opacities throughout the lungs. Stool cultures are unremarkable. Blood cultures to date are negative. Complete blood count shows WBC of 7.2, hemoglobin 7, hematocrit 21.9, and platelet count is 309. Procalcitonin is higher at 0.79. Basic panel shows sodium 143, potassium 3.3, chloride is 109, bicarbonate is 24, BUN is 15, and creatinine 0.8. ProBNP is high at 2079. Complete metabolic screen done earlier showed normal LFTs. C diff PCR was negative. Respiratory culture showed Staphylococcus aureus. She had amylase done on the , that was normal. Lipase, again, was 230, which is normal. She had a CT of abdomen and pelvis done on December 13. It did show moderate inflammatory changes of pancreatitis, [id number] ascites, bilateral pleural effusions, hepatomegaly, and probable portal hypertension. IMPRESSION: 1. Patient with a history of colon polyps. I wonder if there was any malignancy there. She did only have, at that point, colonoscopic removal of the polyp. This will need followup. I would suggest that we try to obtain records from [place], [place], where she had the procedure done. We will also follow the schedule for an outpatient elective colonoscopy. 2. The patient also has a history of recurrent pancreatitis, possibly from hypertriglyceridemia. This will need strict compliance with diet as well as control of hypertriglyceridemia. The patient has been explained that and seems to understand that. We will follow this up as an outpatient also. 3. Patient recently is noted to have portal hypertension on CAT scan. I wonder if this is going to be a problem in the long run. I think she PATIENT'S NAME: IAN BUSBY [facility] AGE: 41 Y [address] ROOM: [id number] [place], [place] [address] LOCATION: GPCU ADMIT DATE: 12/29/2016 Consultation DISCHARGE DATE: FAMILY PHYSICIAN: Perico Cavazos MD ATTENDING PHYSICIAN: RIO CRANE V should have an upper endoscopy done to document any varices. 4. The patient was duly counseled. Questions were answered. Thank you once again for the courtesy of this consultation. I will be happy to follow this patient as an outpatient. MD EZIO SHORT/susan /[id number] d: 01/03/17 1851 t: 01/05/17 1604, CONSULTATION REPORT
--- NOTE | ~2016-12-29 | HP ---
PATIENT'S NAME: IAN BUSBY [facility] AGE: 41 Y [address] ROOM: [place] [address] LOCATION: GPCU ADMIT DATE: 12/29/2016 History & Physical DISCHARGE DATE: FAMILY PHYSICIAN: Perico Cavazos MD ATTENDING PHYSICIAN: RIO CRANE V DATE OF SERVICE: CHIEF COMPLAINT: Chest pain, back pain, cough, not feeling well. HISTORY OF PRESENT ILLNESS: The patient is a 41-year-old female with an extensive past medical history most significant for poorly controlled diabetes, chronic pancreatitis, fatty liver, multiple hospitalizations, who presented to the ER with above complaints. The patient unfortunately is not a very good historian, but upon admission to the ER, she was found to be hypoxic with saturation of 89% on room air. Her. Her blood pressure was 90s/50s and she looked toxic. Upon further discussion with the patient, she reports that she has not had a bowel movement in four days. She is also complaining of recurrent cough with chest and back pain which she attributes to either the cough or other problems. She reports that her Accu-Cheks have been 130s to 180s, though she does have a longstanding history of poorly controlled type 2 diabetes. REVIEW OF SYSTEMS: Significant for chills. No nausea, vomiting, or syncope. All systems have been reviewed and are negative aside from pertinent positives mentioned above. PAST MEDICAL HISTORY: This is not fully documented as the patient is quite a poor historian, but is significant for insulin-dependent diabetes, [place] seizure, a reported history of ascending colon cancer for which the patient is set of polypectomy and radiation, this is distant. There is also documentation of history of leukemia, though she reports that is distant. Review of the chart also shows that the patient had a significant fatty liver with evidence of portal hypertension on imaging and pancreatitis as well as hypertriglyceridemia. CURRENT MEDICATIONS ARE: 1. Aspirin 81. 2. Clonazepam 0.5. PATIENT'S NAME: IAN BUSBY [facility] AGE: 41 Y [address] ROOM: [address] [address] LOCATION: GPCU ADMIT DATE: 12/29/2016 History & Physical DISCHARGE DATE: FAMILY PHYSICIAN: Perico Cavazos MD ATTENDING PHYSICIAN: RIO CRANE V 3. Multivitamin. 4. Humalog sliding scale. 5. Detemir 40 units. 6. Keppra 1.5 g twice a day. 7. Seroquel 200. 8. Topamax 50. 9. Loratadine 10. 10. Fenofibrate. 11. Omeprazole 20. 12. [place]-3 fatty acids. 13. Gabapentin 300. 14. Amitriptyline 100. 15. Calcium carbonate. 16. Cholecalciferol. 17. Furosemide 20. 18. Senna. SOCIAL HISTORY: Significant for ongoing tobacco use. FAMILY HISTORY: Reviewed and is noncontributory due to known underlying range of medical problems. PHYSICAL EXAMINATION: VITAL SIGNS: At this point, the patient's blood pressure is 90s over 50s, heart rate is 120s and regular, saturating 97% on 2 L nasal cannula (she was 89 on admission). T-max was 100.6, respirations are in the 20s. GENERAL: Appears chronically ill, middle-aged female, and in no acute distress. NEUROLOGICAL: Nonfocal. EYES: Show pupils are equal and reactive to light. ENT: Reveals dry mucous membranes and edentulous oral cavity. LYMPHATIC: No cervical lymphadenopathy. ENDOCRINE: Shows no thyromegaly. LUNGS: Significant for some expiratory wheezes on the right (not on the left), there are questionable crackles in the right base as well as right upper lobe. GI: Abdomen is soft, slightly tender. Normoactive bowel sounds. : Reveals no costovertebral angle tenderness. VASCULAR: Reveals 2+ pedal pulses. MUSCULOSKELETAL: Unremarkable. SKIN: Warm and dry. PSYCHIATRIC: Reveals appropriate mood, slightly diminished cognition which I think is baseline and preserved affect. PATIENT'S NAME: IAN BUSBY [facility] AGE: 41 Y [address] ROOM: [address] [address] [facility] ADMIT DATE: 12/29/2016 History & Physical DISCHARGE DATE: FAMILY PHYSICIAN: Perico Cavazos MD ATTENDING PHYSICIAN: RIO CRANE V STUDIES: In the ER, significant for an EKG which demonstrates sinus tachycardia 112 beats per minute. There is a slight peaking of the R-wave in lead V2 and V3. No other significant abnormalities. Chest x-ray, reviewed by me, shows a questionable right upper lobe and may be a right lower lobe infiltrate. LABORATORY DATA: Studies are significant for pH 7.31, lactate of 6.1, potassium of 2.7, CO2 of 21, anion gap of 18, glucose of 700, phos is 2.4. Amylase 19, lipase is 230. Negative cardiac enzymes. ProBNP 986. White count is 20, hemoglobin 9.8, and platelets of 334. D-dimer is 1.7, bands are 34%. Procalcitonin is 10.4. Urinalysis is significant for 1000 of glucose, but no evidence of infection. ASSESSMENT AND PLAN: This is a 41-year-old female who will be admitted with multiple medical conditions. Individual problems to be addressed. 1. Acute hypoxic respiratory failure. This could be due to a pneumonia based on exam and chest x-ray. However, given tachycardia, chest pain, elevated D-dimer, and hypoxia, I feel that we are obliged to rule out a pulmonary embolism. Given her elevated creatinine, we will order a V/Q scan. My suspicion for pulmonary embolism at this point is low, especially as the patient has improved with therapies in the ER, and as such we will not start her on any anticoagulation until we have a V/Q scan. We will also provide her with supplemental oxygen. 2. Suspected pneumonia community versus hospital-acquired, the patient was recently here. She was started on broad-spectrum antibiotics, and in the ER, we will continue her on vancomycin, Zosyn, and Levaquin. We will follow up her blood cultures. We will also provide her with nebulizers as she does have some evidence of obstructive disease on the exam. 3. Severe sepsis by criteria. We will utilize the sepsis order sheet and aggressively volume resuscitate the patient. We will repeat her lactate, and we will follow up her cultures and treat her with broad-spectrum antibiotics. 4. Hyperosmotic nonketotic hyperglycemia. The patient's corrected sodium is close to 150 (corrected for the glucose). We will put her on an insulin drip and monitor her Accu-Cheks regularly. We will convert her to sliding scale, once we have improvement of glucose. 5. Acute kidney injury. This is likely due to dehydration/hyperosmotic nonketotic hyperglycemia: we will be aggressive with fluids. 6. Hypokalemia: the patient has received potassium in the ER and we will closely monitor her potassium level. 7. Chronic pancreatitis/four days of constipation. We will perform a noncontrast CAT scan of chest and abdomen and pelvis to rule out a PATIENT'S NAME: IAN BUSBY [facility] AGE: 41 Y [address] ROOM: [id number] [place] [id number] [facility]: [facility] ADMIT DATE: 12/29/2016 History & Physical DISCHARGE DATE: FAMILY PHYSICIAN: Perico Cavazos MD ATTENDING PHYSICIAN: RIO CRANE V possible GI source for her sepsis as well as another process. She is quite tender on the exam. 8. Seizure disorder. We will continue the patient on her current regimen, though we might have to renally dosed some of her home medications. 9. Hypertriglyceridemia. We will check her lipids in the morning. 10. Additional management depend on clinical course. Time dedicated to this patient's encounter is 45 minutes. MD SEEMA GARCIA/susan /[id number] D: T: HISTORY & PHYSICAL
--- NOTE | ~2016-12-29 | DS ---
PATIENT'S NAME: IAN BUSBY [facility] AGE: 41 Y [address] ROOM: [place] [address] LOCATION: GPCU ADMIT DATE: 12/29/2016 Discharge Summary DISCHARGE DATE: 01/06/2017 FAMILY PHYSICIAN: ePrico Cavazos MD ATTENDING PHYSICIAN: Heber Smith V PRINCIPAL DIAGNOSES: 1. Methicillin-resistant Staphylococcus aureus pneumonia. 2. Acute hypoxic respiratory failure. 3. Type 2 diabetes. 4. Acute on chronic anemia. 5. Seizure disorder. HOSPITAL COURSE: Please refer to admission H and P for detailed history of presenting illness. SUMMARY: The patient presented with acute respiratory failure and was found to have bilateral pneumonia, sputum cultures later grew MRSA. The patient was treated appropriately with IV vancomycin for the first few days and then later changed to p.o. Zyvox and had shown significant improvement. The patient had been afebrile for the past 48 hours. Oxygen requirement is back to baseline and saturating above 95% on room air and ambulating with little difficulty. At this point, the patient finished 9 days of antibiotics, and we will aim for a total of 12 days of p.o. antibiotics, and we will discharge her on Zyvox to finish antibiotic course. The patient is to follow up with her primary care physician early next week. PHYSICAL EXAMINATION: GENERAL: The patient is awake, alert, and oriented x3. CHEST: Clear to bilaterally. HEART: S1 and S2. Regular rate and rhythm. ABDOMEN: Soft, nontender, nondistended. EXTREMITIES: Without edema. DISPOSITION: Home and will follow up with her PCP in 1 week. Less than 30 minutes were spent in discharge planning. MD SILAS DOCKERY/modl PATIENT'S NAME: IAN BUSBY [facility] AGE: 41 Y [address] ROOM: [place] [address] LOCATION: GPCU ADMIT DATE: 12/29/2016 Discharge Summary DISCHARGE DATE: 01/06/2017 FAMILY PHYSICIAN: Perico Cavazos MD ATTENDING PHYSICIAN: Heber Smith V /[id number] d: 01/07/17 0329 t: 01/07/17 182, DISCHARGE SUMMARY
--- NOTE | ~2016-12-29 | CON ---
PATIENT'S NAME: [facility] AGE: 41 Y [address] ROOM: [place] [address] LOCATION: GPCU ADMIT DATE: 12/29/2016 Consultation DISCHARGE DATE: FAMILY PHYSICIAN: Perico Cavazos MD ATTENDING PHYSICIAN: RIO CRANE V DATE OF CONSULTATION: 12/30/2016 REFERRING: Hospitalist Service. REASON FOR REFERRAL: Abnormal chest x-ray. HISTORY OF PRESENT ILLNESS: The patient is a 41-year-old woman. She was hospitalized a couple of weeks ago with pancreatitis. She returned home, but presented to the emergency room last night with shortness of breath, cough, and pain in her back. Chest x-ray demonstrates densely consolidated right lower lobe. PAST MEDICAL HISTORY: Please refer to the admission history and physical exam. FAMILY HISTORY: Unremarkable for lung disease. SOCIAL HISTORY: Apparently, she is a smoker. No significant alcohol use. REVIEW OF SYSTEMS: As per HPI. PHYSICAL EXAMINATION: ENT: Unremarkable. NECK: Normal. CHEST: Normal. LUNGS: Diminished breath sounds and rhonchi. HEART: Regular. ABDOMEN: Soft. EXTREMITIES: No clubbing or edema. ASSESSMENT: Right lower lobe pneumonia. PLAN: PATIENT'S NAME: [facility] AGE: 41 Y [address] ROOM: [place] [address] LOCATION: GPCU ADMIT DATE: 12/29/2016 Consultation DISCHARGE DATE: FAMILY PHYSICIAN: Perico Cavazos MD ATTENDING PHYSICIAN: RIO CRANE V Agree with antibiotic coverage. We will follow with you. MD HUMAIRA HARRISON/halliel /[id number] d: 12/30/16 0759 t: 01/01/17 1303, CONSULTATION REPORT
[~2016-12-29 06:40] MED LIST changes: -LEVAQUIN750 MG PO; -NAPROSYN250 MG PO; -NEURONTIN100 MG PO; -NYSTATIN1 EAC1; -TESSALON PERLE100 MG PO; -ZYVOX600 MG PO
[2016-12-29 07:28] LABS: HEMOGLOBIN 9.8 g/dL (10.0-15.0); MPV 11.7 fl (9.4-12.4); RDW-CV 15.9 % (11.9-14.6)
[2016-12-29 07:29] LABS: BILIRUBIN URINE NEGATIVE (NEGATIVE); BLOOD URINE 10 /UL (NEGATIVE); COLOR URINE STRAW (YELLOW); GLUCOSE URINE 1000 mg/dL (NEGATIVE); KETONE URINE NEGATIVE (NEGATIVE); LEUKOCYTES URINE NEGATIVE /UL (NEGATIVE); NITRITE URINE NEGATIVE (NEGATIVE); PROTEIN URINE 15 mg/dL (NEGATIVE); TURBIDITY URINE CLEAR (CLEAR); UROBILINOGEN URINE NORMAL (NORMAL)
[2016-12-29 07:30] LABS: MCH 31.8 pg (27.0-34.0); MCV 90.9 fl (83.0-98.0); PLATELET COUNT 334 K/uL (150-450); RBC 3.08 M/uL (3.50-5.50); WBC 20.2 K/uL (4.0-11.0)
[2016-12-29 07:36] LABS: BACTERIA URINE NEGATIVE (NEGATIVE); EPITHELIAL URINE RARE #/HPF (NEGATIVE); RBC URINE RARE #/HPF (NEGATIVE); WBC CLUMPS URINE RARE (NEGATIVE); WBC URINE RARE #/HPF (NEGATIVE)
[2016-12-29 07:47] LABS: ALBUMIN 3.4 gm/dL (3.5-5.0); ALK PHOS 66 IU/L (33-138); ALT 14 IU/L (12-78); AST 6 IU/L (10-40); BLOOD UREA NITROGEN 18 mg/dL (6-24); CALCIUM 9.4 mg/dL (8.5-10.5); CHLORIDE 96 mMol/L (96-110); CO2 21 mMol/L (22-32); CPK 28 IU/L (21-215); SODIUM 135 mMol/L (135-145); TOTAL BILIRUBIN 0.7 mg/dL (0.0-1.5); TOTAL PROTEIN 6.8 g/dL (6.0-8.4)
[2016-12-29 07:48] LABS: ANION GAP 20.7 (10.0-19.0); POTASSIUM 2.7 mMol/L (3.7-5.1)
[2016-12-29 07:49] LABS: ESTIMATED GFR (MDRD EQUATION) 27
[2016-12-29 07:59] LABS: ABSOLUTE NEUTROPHIL CT (ANC) 19.2 K/uL (1.8-7.8); BANDED NEUTROPHIL # 6.9 K/uL (0.0-0.1); BANDED NEUTROPHILS % 34 %; LYMPHOCYTE # 0.4 K/uL (0.8-4.0); LYMPHOCYTE % 2 %; MONOCYTE # 0.6 K/uL (0.0-1.0); SEGMENTED NEUTROPHIL # 12.3 K/uL (1.8-7.8); SEGMENTED NEUTROPHIL % 61 %
[2016-12-29 08:05] LABS: MAGNESIUM 1.6 mg/dL (1.3-2.6); PHOSPHORUS 2.4 mg/dL (2.5-4.9)
[2016-12-29 11:18] LABS: CALCIUM 9.2 mg/dL (8.5-10.5); CREATININE 1.5 mg/dL (0.5-1.1)
[2016-12-29 11:33] LABS: ANION GAP 14.8 (10.0-19.0); POTASSIUM 2.8 mMol/L (3.7-5.1)
[2016-12-29 12:59] LABS: INR - (THERAPEUTIC) 1.4 (0.9-1.1); PROTIME 15.3 SECONDS (9.6-11.1)
[2016-12-29 13:02] LABS: BICARBONATE 22.2 mmol/L (18.0-23.0); PCO2 35 mmHg (35-45); PO2 92 mmHg (80-90)
[2016-12-29 13:07] LABS: LACTATE 2.5 mEq/L (0.50-1.60)
[2016-12-29 16:50] LABS: ANION GAP 14.3 (10.0-19.0); CALCIUM 8.6 mg/dL (8.5-10.5); CREATININE 1.2 mg/dL (0.5-1.1); POTASSIUM 3.3 mMol/L (3.7-5.1)
[2016-12-30 05:47] LABS: CALCIUM 8.1 mg/dL (8.5-10.5); CREATININE 1.1 mg/dL (0.5-1.1); MAGNESIUM 1.7 mg/dL (1.3-2.6); POTASSIUM 3.4 mMol/L (3.7-5.1)
[2016-12-30 05:49] LABS: ANION GAP 12.4 (10.0-19.0); PHOSPHORUS 1.5 mg/dL (2.5-4.9)
[2016-12-30 13:03] LABS: HEMATOCRIT 23.2 % (33.0-46.0); MPV 11.3 fl (9.4-12.4); RBC 2.41 M/uL (3.50-5.50); RDW-CV 16.4 % (11.9-14.6); WBC 12.7 K/uL (4.0-11.0)
[2016-12-30 13:06] LABS: HEMOGLOBIN 7.6 g/dL (10.0-15.0); MCH 31.5 pg (27.0-34.0); MCHC 32.8 gm/dL (32.0-36.5); MCV 96.3 fl (83.0-98.0); PLATELET COUNT 211 K/uL (150-450)
[2016-12-30 13:22] LABS: ANION GAP 15.2 (10.0-19.0); CALCIUM 7.8 mg/dL (8.5-10.5); CREATININE 1.1 mg/dL (0.5-1.1); POTASSIUM 3.2 mMol/L (3.7-5.1)
[2016-12-30 13:56] LABS: ABSOLUTE NEUTROPHIL CT (ANC) 11.4 K/uL (1.8-7.8); BANDED NEUTROPHIL # 1.3 K/uL (0.0-0.1); BANDED NEUTROPHILS % 10 %; LYMPHOCYTE # 0.3 K/uL (0.8-4.0); LYMPHOCYTE % 2 %; MONOCYTE # 0.6 K/uL (0.0-1.0); SEGMENTED NEUTROPHIL # 10.2 K/uL (1.8-7.8); SEGMENTED NEUTROPHIL % 80 %
[2016-12-31 00:45] LABS: BICARBONATE 22.1 mmol/L (18.0-23.0); PCO2 41 mmHg (35-45)
[2016-12-31 00:52] LABS: PO2 49 mmHg (80-90)
[2016-12-31 03:03] LABS: HEMATOCRIT 23.5 % (33.0-46.0); MCH 31.3 pg (27.0-34.0); MCHC 32.8 gm/dL (32.0-36.5); MCV 95.5 fl (83.0-98.0); MPV 11.4 fl (9.4-12.4); PLATELET COUNT 237 K/uL (150-450); RBC 2.46 M/uL (3.50-5.50); WBC 10.9 K/uL (4.0-11.0)
[2016-12-31 03:08] LABS: HEMOGLOBIN 7.7 g/dL (10.0-15.0)
[2016-12-31 03:29] LABS: BLOOD UREA NITROGEN 13 mg/dL (6-24); CALCIUM 8.2 mg/dL (8.5-10.5); CO2 20 mMol/L (22-32); ESTIMATED GFR (MDRD EQUATION) > 60
[2016-12-31 03:33] LABS: ANION GAP 12.9 (10.0-19.0); CHLORIDE 116 mMol/L (96-110); POTASSIUM 2.9 mMol/L (3.7-5.1); SODIUM 146 mMol/L (135-145)
[2016-12-31 05:01] LABS: BICARBONATE 21.8 mmol/L (18.0-23.0); PCO2 36 mmHg (35-45); PO2 101 mmHg (80-90)
[2016-12-31 05:06] LABS: ABSOLUTE NEUTROPHIL CT (ANC) 9.1 K/uL (1.8-7.8); BANDED NEUTROPHIL # 2.1 K/uL (0.0-0.1); BANDED NEUTROPHILS % 19 %; LYMPHOCYTE # 0.8 K/uL (0.8-4.0); LYMPHOCYTE % 7 %; MONOCYTE # 0.5 K/uL (0.0-1.0); SEGMENTED NEUTROPHIL % 64 %
[2016-12-31 14:37] LABS: CALCIUM 8.1 mg/dL (8.5-10.5); CREATININE 1.2 mg/dL (0.5-1.1)
[2016-12-31 14:43] LABS: ANION GAP 13.9 (10.0-19.0); POTASSIUM 3.9 mMol/L (3.7-5.1)
[2017-01-01 05:07] LABS: HEMATOCRIT 21.8 % (33.0-46.0); MCH 31.5 pg (27.0-34.0); MCHC 31.7 gm/dL (32.0-36.5); MCV 99.5 fl (83.0-98.0); MPV 11.6 fl (9.4-12.4); PLATELET COUNT 199 K/uL (150-450); RBC 2.19 M/uL (3.50-5.50); RDW-CV 15.9 % (11.9-14.6); WBC 11.2 K/uL (4.0-11.0)
[2017-01-01 05:10] LABS: HEMOGLOBIN 6.9 g/dL (10.0-15.0)
[2017-01-01 05:29] LABS: ALK PHOS 83 IU/L (33-138); ALT 20 IU/L (12-78); ANION GAP 13.1 (10.0-19.0); AST 18 IU/L (10-40); BLOOD UREA NITROGEN 15 mg/dL (6-24); CALCIUM 8.4 mg/dL (8.5-10.5); CHLORIDE 114 mMol/L (96-110); CO2 21 mMol/L (22-32); CREATININE 0.9 mg/dL (0.5-1.1); POTASSIUM 3.1 mMol/L (3.7-5.1); SODIUM 145 mMol/L (135-145); TOTAL PROTEIN 5.7 g/dL (6.0-8.4)
[2017-01-01 05:32] LABS: ESTIMATED GFR (MDRD EQUATION) > 60; TOTAL BILIRUBIN 0.3 mg/dL (0.0-1.5)
[2017-01-01 05:42] LABS: ABSOLUTE NEUTROPHIL CT (ANC) 9.9 K/uL (1.8-7.8); BANDED NEUTROPHIL # 2.1 K/uL (0.0-0.1); BANDED NEUTROPHILS % 19 %; LYMPHOCYTE # 0.9 K/uL (0.8-4.0); LYMPHOCYTE % 8 %; MONOCYTE # 0.1 K/uL (0.0-1.0); SEGMENTED NEUTROPHIL # 7.7 K/uL (1.8-7.8); SEGMENTED NEUTROPHIL % 69 %
[2017-01-02 03:56] LABS: HEMATOCRIT 23.9 % (33.0-46.0); MCV 97.2 fl (83.0-98.0); MPV 10.1 fl (9.4-12.4); RBC 2.46 M/uL (3.50-5.50); RDW-CV 16.3 % (11.9-14.6); WBC 9.2 K/uL (4.0-11.0)
[2017-01-02 03:57] LABS: HEMOGLOBIN 7.6 g/dL (10.0-15.0); MCH 30.9 pg (27.0-34.0); MCHC 31.8 gm/dL (32.0-36.5); PLATELET COUNT 243 K/uL (150-450)
[2017-01-02 04:05] LABS: BICARBONATE 22.5 mmol/L (18.0-23.0); PCO2 38 mmHg (35-45); PO2 89 mmHg (80-90)
[2017-01-02 04:10] LABS: ANION GAP 14.6 (10.0-19.0); BLOOD UREA NITROGEN 14 mg/dL (6-24); CALCIUM 9.2 mg/dL (8.5-10.5); CHLORIDE 111 mMol/L (96-110); CO2 22 mMol/L (22-32); CREATININE 0.8 mg/dL (0.5-1.1); ESTIMATED GFR (MDRD EQUATION) > 60; POTASSIUM 3.6 mMol/L (3.7-5.1); SODIUM 144 mMol/L (135-145)
[2017-01-02 05:20] LABS: BANDED NEUTROPHIL # 0.6 K/uL (0.0-0.1); BANDED NEUTROPHILS % 6 %; LYMPHOCYTE # 0.6 K/uL (0.8-4.0); LYMPHOCYTE % 7 %; MONOCYTE # 0.4 K/uL (0.0-1.0); SEGMENTED NEUTROPHIL # 7.5 K/uL (1.8-7.8); SEGMENTED NEUTROPHIL % 81 %
[2017-01-03 07:08] LABS: ANION GAP 13.3 (10.0-19.0); BLOOD UREA NITROGEN 15 mg/dL (6-24); CALCIUM 9.2 mg/dL (8.5-10.5); CHLORIDE 109 mMol/L (96-110); CO2 24 mMol/L (22-32); CREATININE 0.8 mg/dL (0.5-1.1); ESTIMATED GFR (MDRD EQUATION) > 60; POTASSIUM 3.3 mMol/L (3.7-5.1); SODIUM 143 mMol/L (135-145)
[2017-01-03 07:22] LABS: HEMATOCRIT 21.9 % (33.0-46.0); MCV 95.6 fl (83.0-98.0); MPV 10.7 fl (9.4-12.4); RBC 2.29 M/uL (3.50-5.50); RDW-CV 16.4 % (11.9-14.6); WBC 7.2 K/uL (4.0-11.0)
[2017-01-03 07:23] LABS: MCH 30.6 pg (27.0-34.0); PLATELET COUNT 309 K/uL (150-450)
[2017-01-03 07:48] LABS: ABSOLUTE NEUTROPHIL CT (ANC) 5.5 K/uL (1.8-7.8); BANDED NEUTROPHIL # 0.7 K/uL (0.0-0.1); BANDED NEUTROPHILS % 10 %; LYMPHOCYTE # 0.5 K/uL (0.8-4.0); LYMPHOCYTE % 7 %; MONOCYTE # 0.9 K/uL (0.0-1.0); SEGMENTED NEUTROPHIL # 4.8 K/uL (1.8-7.8); SEGMENTED NEUTROPHIL % 67 %
[2017-01-04 03:45] LABS: HEMATOCRIT 22.8 % (33.0-46.0); MCHC 31.6 gm/dL (32.0-36.5); MCV 98.3 fl (83.0-98.0); MPV 10.6 fl (9.4-12.4); PLATELET COUNT 326 K/uL (150-450); RBC 2.32 M/uL (3.50-5.50); RDW-CV 16.5 % (11.9-14.6)
[2017-01-04 03:53] LABS: HEMOGLOBIN 7.2 g/dL (10.0-15.0)
[2017-01-04 04:03] LABS: ANION GAP 16.3 (10.0-19.0); CALCIUM 9.6 mg/dL (8.5-10.5); CREATININE 1.2 mg/dL (0.5-1.1)
[2017-01-04 04:07] LABS: POTASSIUM 4.3 mMol/L (3.7-5.1)
[2017-01-04 05:47] LABS: ABSOLUTE NEUTROPHIL CT (ANC) 5.3 K/uL (1.8-7.8); LYMPHOCYTE # 0.5 K/uL (0.8-4.0); LYMPHOCYTE % 7 %; MONOCYTE # 0.3 K/uL (0.0-1.0); SEGMENTED NEUTROPHIL # 5.3 K/uL (1.8-7.8); SEGMENTED NEUTROPHIL % 76 %
[2017-01-05 06:23] LABS: BASOPHIL # 0.1 K/uL (0.0-0.2); BASOPHIL % 0.7 %; EOSINOPHIL # 0.9 K/uL (0.0-0.5); HEMOGLOBIN 9.9 g/dL (10.0-15.0); IMMATURE GRANULOCYTE # 0.3 K/uL (0.0-0.3); IMMATURE GRANULOCYTE % 3.2 %; LYMPHOCYTE # 0.5 K/uL (0.8-4.0); LYMPHOCYTE % 6.3 %; MCV 97.2 fl (83.0-98.0); MONOCYTE # 0.5 K/uL (0.0-1.0); MONOCYTE % 5.4 %; MPV 10.6 fl (9.4-12.4); NEUTROPHIL # (ANC) 6.4 K/uL (1.8-7.8); NEUTROPHIL % 74.4 %; NRBC % 0 /100WBC (0-0.00); WBC 8.6 K/uL (4.0-11.0)
[2017-01-05 06:25] LABS: HEMATOCRIT 31.8 % (33.0-46.0); MCH 30.3 pg (27.0-34.0); MCHC 31.1 gm/dL (32.0-36.5); PLATELET COUNT 472 K/uL (150-450); RBC 3.27 M/uL (3.50-5.50)
[2017-01-05 06:32] LABS: ALBUMIN 2.6 gm/dL (3.5-5.0); ANION GAP 16.9 (10.0-19.0); CREATININE 1.1 mg/dL (0.5-1.1); MAGNESIUM 1.9 mg/dL (1.3-2.6); PHOSPHORUS 5.5 mg/dL (2.5-4.9); POTASSIUM 3.9 mMol/L (3.7-5.1)
[2017-01-05 06:33] LABS: CALCIUM 11.2 mg/dL (8.5-10.5)
[2017-01-06 03:47] LABS: BASOPHIL # 0.1 K/uL (0.0-0.2); BASOPHIL % 0.5 %; EOSINOPHIL # 0.5 K/uL (0.0-0.5); EOSINOPHIL % 5.2 %; HEMATOCRIT 32.1 % (33.0-46.0); HEMOGLOBIN 10.1 g/dL (10.0-15.0); IMMATURE GRANULOCYTE # 0.2 K/uL (0.0-0.3); IMMATURE GRANULOCYTE % 2.4 %; LYMPHOCYTE # 0.5 K/uL (0.8-4.0); LYMPHOCYTE % 5.3 %; MCHC 31.5 gm/dL (32.0-36.5); MCV 95.3 fl (83.0-98.0); MONOCYTE # 0.5 K/uL (0.0-1.0); MONOCYTE % 5.1 %; NEUTROPHIL # (ANC) 8.3 K/uL (1.8-7.8); NEUTROPHIL % 81.5 %; NRBC % 0 /100WBC (0-0.00); PLATELET COUNT 508 K/uL (150-450); RBC 3.37 M/uL (3.50-5.50); RDW-CV 16.1 % (11.9-14.6); WBC 10.2 K/uL (4.0-11.0)
[2017-01-06 04:01] LABS: ALBUMIN 2.7 gm/dL (3.5-5.0); ANION GAP 14.9 (10.0-19.0); BLOOD UREA NITROGEN 24 mg/dL (6-24); CHLORIDE 103 mMol/L (96-110); CO2 24 mMol/L (22-32); ESTIMATED GFR (MDRD EQUATION) > 60; MAGNESIUM 1.7 mg/dL (1.3-2.6); PHOSPHORUS 5.5 mg/dL (2.5-4.9); POTASSIUM 3.9 mMol/L (3.7-5.1); SODIUM 138 mMol/L (135-145)
[2017-01-06] MEDS ORDERED: ZYVOX600 MG PO (14:21)
[2017-01-06] MEDS ORDERED: TESSALON PERLE100 MG PO (14:25)
[2017-01-06] MEDS ORDERED: NAPROSYN250 MG PO (14:27)
== END 2017-01-06 15:15 | disposition disaster alternative care site (69) | DRG 871 ==
LOC: GMED 06:40 → GPCU 08:34
PROVIDERS: Family Medicine; Internal Medicine; ADMIT Internal Medicine
PROC: 5A09557 Assistance with Respiratory Ventilation, Greater than 96 Consecutive Hours, Continuous Positive Airway Pressure (ICD-10-PCS; principal; 2016-12-31)
PROC: 30233N1 Transfusion of Nonautologous Red Blood Cells into Peripheral Vein, Percutaneous Approach (ICD-10-PCS; 2017-01-04)
DX: A41.02 Sepsis due to Methicillin resistant Staphylococcus aureus (principal); J15.212 Pneumonia due to Methicillin resistant Staphylococcus aureus; J96.01 Acute respiratory failure with hypoxia; E11.00 Type 2 diabetes mellitus with hyperosmolarity without nonketotic hyperglycemic-hyperosmolar coma (NKHHC); N17.9 Acute kidney failure, unspecified; K76.6 Portal hypertension; K86.1 Other chronic pancreatitis; D64.9 Anemia, unspecified; E11.65 Type 2 diabetes mellitus with hyperglycemia; E78.1 Pure hyperglyceridemia; E87.6 Hypokalemia; G40.909 Epilepsy, unspecified, not intractable, without status epilepticus; R65.20 Severe sepsis without septic shock; Z79.4 Long term (current) use of insulin
CPT/HCPCS: A9539; A9540; J1650; J1885; J1940; J1956; J2270; J2543; J2930; J3370; J3480; J7030; J7040; J7050; J7121; J7612; P9016

== ENCOUNTER → 2016-12-29 | Outpatient (CLI) | payer MEDICAID ==
[~2016-12-29] MED LIST changes: +LEVAQUIN750 MG PO; +NAPROSYN250 MG PO; +NEURONTIN100 MG PO; +NYSTATIN1 EAC1; +SENOKOT-S TABL1 EACH PO; +TESSALON PERLE100 MG PO; +ZYVOX600 MG PO
== END | disposition disaster alternative care site (69) ==
LOC: GAMB 06:27
DX: R07.9 Chest pain, unspecified (principal); R00.2 Palpitations; G40.909 Epilepsy, unspecified, not intractable, without status epilepticus; Z79.82 Long term (current) use of aspirin; Z79.899 Other long term (current) drug therapy; Z91.040 Latex allergy status; Z88.8 Allergy status to other drugs, medicaments and biological substances
CPT/HCPCS: A0425; A0427

== ENCOUNTER 2017-03-04 22:58 | Emergency (ER) | payer MEDICAID ==
--- NOTE | ~2017-03-04 | ER ---
PATIENT'S NAME: IAN BUSBY [facility] AGE: 42 Y [address] ROOM: [place] [address] LOCATION: [facility] ADMIT DATE: 03/04/2017 ER/Outpatient Report DISCHARGE DATE: 03/05/2017 FAMILY PHYSICIAN: Physician, Unknown ATTENDING PHYSICIAN: Jonah Ann Admission date and time documented on the medical record. I saw the patient at 2305 hours. CHIEF COMPLAINT: Syncopal episode, fall. HISTORY OF PRESENT ILLNESS: This is a 42-year-old female, who was brought to the emergency room by paramedics via ambulance for evaluation. She was found laying on the ground outside unresponsive. Initially, 911 was dispatched. Paramedics found her awake and responsive. She has been falling a lot at home according to the patient. Fell outside. Denies any head pain, neck pain, spine pain, chest pain, abdominal pain. No lightheadedness, dizziness, vertigo. No recent colds, coughs, flus, fever, chills, or sweats. No headache, eyes, ears, nose, throat, neck, or spine pain. No shortness of breath. No nausea, vomiting, or diarrhea. No incontinence of stool or urine. No joint or muscle swelling, redness, or pain. No skin eruptions or rash. The patient does have a history of seizure disorder, epilepsy. Also has insulin-dependent diabetes mellitus type 2. No other neuro or endocrine problems. Does have posttraumatic stress disorder, depression, anxiety, and stress. HOME MEDICATIONS: See attached medication list. ALLERGIES: PROZAC, LATEX, CITRUS. SOCIAL HISTORY: The patient smokes about a half to a pack of cigarettes a day. Nondrinker. PAST MEDICAL HISTORY: Posttraumatic stress disorder, depression, anxiety, sarcoidosis, anemia, insulin-dependent diabetes mellitus type 2, pancreatitis, peripheral diabetic neuropathy, seizure disorder, epilepsy, dyslipidemia, hypokalemia, colon cancer of ascending colon, gastroesophageal reflux, frequent falls, deep vein thrombosis; pneumonia, MRSA positive; tobacco abuse, leukemia, borderline personality disorder. PAST SURGICAL HISTORY: PATIENT'S NAME: IAN BUSBY [facility] AGE: 42 Y [address] ROOM: [place] [address] LOCATION: ED ADMIT DATE: 03/04/2017 ER/Outpatient Report DISCHARGE DATE: 03/05/2017 FAMILY PHYSICIAN: Physician, Unknown ATTENDING PHYSICIAN: Jonah Ann Colonoscopy, deliveries, radiation therapy, chemotherapy, abdominal surgery. REVIEW OF SYSTEMS: All systems reviewed by me are negative with the exception of those discussed in the history of present illness. PHYSICAL EXAMINATION: VITAL SIGNS: Temperature 97.1 tympanic, pulse 86 and regular, respirations 16, blood pressure 114/75, O2 saturation on room air is 95%. HEAD: Normocephalic. No abrasion, contusion, laceration, swelling of the scalp or face. EYES: Extraocular muscles intact. PERRL. Sclerae and conjunctivae clear, nonicteric. No subconjunctival hemorrhages. No hyphema. EARS: Clear TMs bilaterally. NOSE: Clear. No epistaxis. THROAT: Clear. Mucous membranes moist. Teeth, jaw intact. NECK: No nuchal rigidity. No findings of adenopathy. No tenderness. SPINE: Negative. LUNGS: Clear good air flow. No rales, rhonchi, or wheezes. HEART: Regular. Pulses are palpable. No chest wall or ribcage pain to palpation. ABDOMEN: Soft, nondistended, nontender. Good bowel tones. No organomegaly or abnormal mass palpable. No CVA tenderness. PELVIS: Stable, nontender. EXTREMITIES: Moves all 4 extremities. Did walk into the emergency department. No peripheral edema, cyanosis, or deformity. NEUROVASCULAR: Intact. SKIN: Clear. No skin eruptions or rash. The patient is not postictal. She had no seizure activity. DIAGNOSTIC STUDIES: CT scan of the head showed no intracranial bleed, midline shift, mass effect, or skull fracture. Chest x-ray showed no acute infiltrate or changes. EKG showed sinus rhythm. No acute ST elevation, ischemic change, or arrhythmia. LABORATORY DATA: White count is 5000, 72 segs, 13 lymphs, 7 monos, 5 eos, 1 baso. Hemoglobin is 10 with hematocrit 29.3, platelet count is 288,000. PTT is 27, pro-time is 10.4, with an INR of 0.99. Serum acetone was negative. Procalcitonin was PATIENT'S NAME: IAN BUSBY [facility] AGE: 42 Y [address] ROOM: [place] [address] LOCATION: [facility] ADMIT DATE: 03/04/2017 ER/Outpatient Report DISCHARGE DATE: 03/05/2017 FAMILY PHYSICIAN: Physician, Unknown ATTENDING PHYSICIAN: Jonah Ann less than 0.05. Lactate was 2.2. Venous pH was 7.38. CMS was normal except for low potassium 3.1, low CO2 content of 21, elevated glucose 372, elevated creatinine 1.2, low GFR of 49, magnesium 1.4. CPK was 23. Point of care cardiac enzymes were normal. CRP was 0.67. Thyroid tests were normal. ProBNP was less than 30. Quantitative hCG was negative. D-dimer was 0.37. Did give the patient a liter of normal saline IV in the emergency room. IMPRESSION: 1. Syncopal episode. Etiology uncertain. 2. History of seizure disorder, epilepsy. No acute seizure activity or postictal state. 3. Hypokalemia. 4. Hypomagnesemia. 5. Insulin-dependent diabetes mellitus type 2. 6. History of anemia. 7. Posttraumatic stress disorder with depression, anxiety, and borderline personality disorder. The patient has been under lot of stress. 8. Peripheral diabetic neuropathy. 9. Dyslipidemia. 10. Frequent falls. 11. Tobacco abuse. PLAN: The patient was given 40 mEq of potassium orally here in the emergency department. Discharged home. Observation. Activity as tolerated. Continue present home medication and care. Good hydration, balanced diet, good rest. K-Dur 20 mEq b.i.d. for a week. Follow up with personal physician in 4 to 5 days. JONAH ANN MD SDS/modl /[id number] d: 03/05/170 t: 03/10/17 1905, OUTPATIENT REPORT
[~2017-03-04 22:58] MED LIST changes: +NAPROSYN250 MG PO; +TESSALON PERLE100 MG PO; +ZYVOX600 MG PO
[2017-03-04 23:34] LABS: LACTATE 2.2 mEq/L (0.50-1.60)
[2017-03-04 23:36] LABS: BASOPHIL # 0.1 K/uL (0.0-0.2); EOSINOPHIL # 0.2 K/uL (0.0-0.5); EOSINOPHIL % 4.8 %; HEMATOCRIT 29.3 % (33.0-46.0); IMMATURE GRANULOCYTE # 0.1 K/uL (0.0-0.3); IMMATURE GRANULOCYTE % 1.6 %; LYMPHOCYTE # 0.7 K/uL (0.8-4.0); LYMPHOCYTE % 13.2 %; MCH 30.7 pg (27.0-34.0); MCHC 34.1 gm/dL (32.0-36.5); MONOCYTE # 0.4 K/uL (0.0-1.0); MONOCYTE % 7.2 %; MPV 10.5 fl (9.4-12.4); NEUTROPHIL # (ANC) 3.6 K/uL (1.8-7.8); NEUTROPHIL % 72.2 %; NRBC % 0 /100WBC (0-0.00); RBC 3.26 M/uL (3.50-5.50)
[2017-03-04 23:37] LABS: MCV 89.9 fl (83.0-98.0); PLATELET COUNT 288 K/uL (150-450); RDW-CV 18.6 % (11.9-14.6)
[2017-03-04 23:44] LABS: INR - (THERAPEUTIC) 0.99 (0.92-1.07); PROTIME 10.4 SECONDS (9.8-11.4); PTT 27 SECONDS (25-32)
[2017-03-04 23:56] LABS: ALBUMIN 3.8 gm/dL (3.5-5.0); ALK PHOS 56 IU/L (33-138); ALT 19 IU/L (12-78); ANION GAP 13.1 (10.0-19.0); AST 8 IU/L (10-40); BLOOD UREA NITROGEN 17 mg/dL (6-24); CALCIUM 10.5 mg/dL (8.5-10.5); CHLORIDE 107 mMol/L (96-110); CO2 21 mMol/L (22-32); CPK 23 IU/L (21-215); CREATININE 1.2 mg/dL (0.5-1.1); ESTIMATED GFR (MDRD EQUATION) 49; MAGNESIUM 1.4 mg/dL (1.8-2.6); POTASSIUM 3.1 mMol/L (3.7-5.1); SODIUM 138 mMol/L (135-145); TOTAL BILIRUBIN 0.3 mg/dL (0.0-1.5); TOTAL PROTEIN 7.7 g/dL (6.0-8.4)
== END 2017-03-05 01:08 | disposition disaster alternative care site (69) ==
LOC: GMED 22:58
PROVIDERS: Emergency Medicine
DX: G40.909 Epilepsy, unspecified, not intractable, without status epilepticus (principal); F17.210 Nicotine dependence, cigarettes, uncomplicated; F43.10 Post-traumatic stress disorder, unspecified; F32.9 Major depressive disorder, single episode, unspecified; F41.9 Anxiety disorder, unspecified; E11.42 Type 2 diabetes mellitus with diabetic polyneuropathy; K21.9 Gastro-esophageal reflux disease without esophagitis; F60.3 Borderline personality disorder; C18.2 Malignant neoplasm of ascending colon; E87.6 Hypokalemia; E83.42 Hypomagnesemia; E03.9 Hypothyroidism, unspecified; Z88.8 Allergy status to other drugs, medicaments and biological substances; Z91.040 Latex allergy status; Z86.14 Personal history of Methicillin resistant Staphylococcus aureus infection; Z86.718 Personal history of other venous thrombosis and embolism; Z98.890 Other specified postprocedural states; Z79.899 Other long term (current) drug therapy; Z79.82 Long term (current) use of aspirin; Z91.81 History of falling
CPT/HCPCS: J7030

== ENCOUNTER 2017-05-18 17:30 | Inpatient (IN) | payer MEDICAID ==
[~2017-05-18] VITALS: Ht 158.8 cm; Wt 64.5 kg
--- NOTE | ~2017-05-18 | DS ---
PATIENT'S NAME: ALICIA BUSBY [facility] AGE: 42 Y [address] ROOM: [id number] [place], [place] [address] LOCATION: GPCU ADMIT DATE: 05/18/2017 Discharge Summary DISCHARGE DATE: 05/22/2017 FAMILY PHYSICIAN: Perico Cavazos MD ATTENDING PHYSICIAN: Juan Simpson REASON FOR ADMISSION: Hyperglycemia and generalized weakness. PRINCIPAL DIAGNOSIS: Poorly controlled insulin-dependent diabetes type 2. SECONDARY DIAGNOSES: 1. Acute kidney injury, resolved. 2. Seizure disorder. 3. Vaginal candidiasis. 4. Depression. 5. Dietary indiscretion. 6. Urinary tract infection. PENDING LABS AND TESTS AT THE TIME OF DISCHARGE: None. HOSPITAL COURSE: Alicia is a very pleasant 42-year-old female with long- standing type 2 diabetes which is insulin dependent and historically difficult to control. The patient presented after initially seeing her PCP with complaints of generalized weakness and fatigue and was found to have sugar greater than 800 as well as elevated creatinine to 1.7 from baseline of around 1. She had also complained of dysuria and was found to have a UA consistent with a diagnosis of UTI. Following admission, the patient did well. She was continued on her home medications following workup which did not show any signs of ketoacidosis. She was resumed on her home insulin and treated with initially gentle IV fluids and recovered rapidly. Acute kidney injury was quick to resolve. Neuropathic pain remained a difficult to control entity during her stay and gabapentin was increased from 300 mg t.i.d. to 400 mg t.i.d. with relief though this may need further titration as an outpatient. Greatest contributor to difficult to control blood glucose during stay was found to be dietary indiscretion. On the day prior to discharge, premeal glucose was 112, rising rapidly into the high 400s 20 minutes later after the patient had notably supplemented her hospital provided meal with additional cookies, tea, soda, pork rinds, and a sandwich. The patient was treated with Levaquin for her UTI with no recurrent dysuria on discharge. She has 1 day left to complete this course of therapy. During stay, long-acting insulin detemir was increased to 55 units subcu b.i.d. and she will be resumed on her insulin aspart 15 units subcu t.i.d. with meals at home. Diabetes Education did see patient while admitted and discussed modifications to diet. The patient had endorsed ongoing issues which are not new, consistent with urinary incontinence. This was felt to be likely related to hyperglycemia though may PATIENT'S NAME: ALICIA BUSBY [facility] AGE: 42 Y [address] ROOM: [id number] [place], [place] [address] LOCATION: GPCU ADMIT DATE: 05/18/2017 Discharge Summary DISCHARGE DATE: 05/22/2017 FAMILY PHYSICIAN: Perico Cavazos MD ATTENDING PHYSICIAN: Juan Simpson warrant further evaluation given history of multiple vaginal childbirths and concern for pelvic organ prolapse. The patient did also note significant inner groin pruritus and was treated for vaginal candidiasis versus candidal intertrigo and will be sent home with nystatin powder. MEDICATIONS AND PERTINENT CHANGES: See MAR for final discharge medications. Pertinent only for changes noted above which include increasing gabapentin as well as long acting insulin. Nystatin powder added for candidal intertrigo. CONSULTANTS: None. CONDITION ON DATE OF DISCHARGE: VITAL SIGNS: Last vital signs, temperature 96.2, pulse 105, respirations 12, blood pressure 98/65, saturating 98% on room air. GENERAL: In no acute distress. Sitting up comfortably in bed. CARDIOVASCULAR: Mildly tachycardic but regular. No murmurs, rubs, or gallops appreciated. LUNGS: Clear to auscultation bilaterally. Normal effort on room air. ABDOMEN: Soft, nontender, nondistended. EXTREMITIES: Lower extremities minimally tender to palpation over lateral thighs which are areas of greatest subjective pain with description consistent with neuropathic pain. NEUROLOGIC: Alert and oriented. Cooperative and pleasant. DISPOSITION AND DISCHARGE INSTRUCTIONS: The patient instructed to eat regular and consistent meals for breakfast, lunch, and dinner and to be forthcoming with variations to this diet with her primary care physician so that adequate insulin adjustments can be made. She is deemed safe to return home. She will follow up with her PCP in 1 week. Time spent on date of discharge including direct patient care and coordination of discharge activities 25 minutes. MD NATHALIE MENA/modl /[id number] d: 05/23/17 0143 t: 05/23/17 0741, DISCHARGE SUMMARY
--- NOTE | ~2017-05-18 | HP ---
PATIENT'S NAME: IAN BUSBY [facility] AGE: 42 Y [address] ROOM: [place] [address] LOCATION: GPCU ADMIT DATE: 05/18/2017 History & Physical DISCHARGE DATE: FAMILY PHYSICIAN: Perico Cavazos MD ATTENDING PHYSICIAN: DIA CHRISTENSEN DATE OF SERVICE: CHIEF COMPLAINT: Hyperglycemia, generalized weakness. HISTORY OF PRESENT ILLNESS: This is a 42-year-old female, who presents here after initially coming to see her primary care physician, Dr. Cavazos, with complaints of generalized weakness and fatigue over the past several days. This also included overall decreased p.o. intake over the past several days as well. The patient also complains of heaviness in the head and generalized headache during this time as well. The patient was found to be hyperglycemic with blood sugars above 500 as well as an elevated creatinine of 1.7 from a baseline of around 1 during her visits, and subsequently transferred here for admission and observation. The patient during my evaluation is lethargic appearing, and tells me that she has decreased appetite and overall failure to thrive like symptoms. Also complains of some frequency urination and dysuria. Denies any fevers or chills related to this. Denies any abdominal pain, nausea, vomiting, or diarrhea related to this. Also, denies any chest pain, shortness of breath, dizziness, or lightheadedness. PAST MEDICAL HISTORY: 1. Insulin-dependent diabetes. 2. Seizure disorder. 3. Chronic pancreatitis. 4. Major depression. SOCIAL HISTORY: The patient recently . Lives at home with her . Smokes E cigarettes, but has a history of half a pack a day smoking prior to that for over 15 years. FAMILY HISTORY: Mother of breast cancer in 1999. Aunts and uncles on the maternal side have had multiple cancers. Father also had heart disease and type 2 diabetes. REVIEW OF SYSTEMS: All systems have been reviewed and were negative except as described in the HPI. PATIENT'S NAME: IAN BUSBY [facility] AGE: 42 Y [address] ROOM: [place] [address] LOCATION: GPCU ADMIT DATE: 05/18/2017 History & Physical DISCHARGE DATE: FAMILY PHYSICIAN: Perico Cavazos MD ATTENDING PHYSICIAN: DIA CHRISTENSEN PHYSICAL EXAMINATION: VITAL SIGNS: Reviewed and stable. Afebrile. GENERAL: Lethargic appearing but awake, alert, and oriented x3, in no apparent distress. HEENT: Dry mucosal membranes. No conjunctival pallor or scleral icterus noted. HEART: S1, S2, regular rate and rhythm. CHEST: Clear to auscultation bilaterally. ABDOMEN: Soft, nontender, nondistended with positive bowel sounds. SKIN: Without rash or lesions. Musculoskeletal. No joint pain, swelling, effusion, or erythema noted. NEURO: Grossly nonfocal. SIGNIFICANT LABORATORIES: Creatinine 1.7, baseline around 1 and 1.2. ASSESSMENT AND PLAN: 1. Acute kidney injury: This appears to be prerenal from diminished p.o. intake and hyperglycemia and dehydration from that. We will give IV fluids. Monitor urine output and recheck creatinine in the morning. 2. Insulin-Dependent diabetes mellitus with hyperglycemia. This appears to be related to noncompliance with medications. We will continue her home insulin regimen and cover with sliding scale insulin. Give IV fluids and monitor. No signs of being diabetes ketoacidosis. We will recheck UA again as UA done at primary care physician's office was negative for ketones. 3. Dysuria. UA done at primary care physician's office positive for bacteria. We will put her on antibiotics with Cipro to complete 5 days noting that she has dysuria symptoms as well. 4. Seizure disorder. Continue her home antiepileptic medications. 5. Depression. We will continue her home anti-depressants. 6. Deep venous thrombosis prophylaxis. Will ambulate. MD SILAS DOCKERY/halliel /[id number] D: T: HISTORY & PHYSICAL
--- NOTE | 2017-05-18 20:05 | NUR ---
Patient is 42 yo female admitted this evening for c/o hyperglycemia. patient does c/o urgency, frequency, burning and itching w/urination. patient is also at the end of her menses at this time. is present. appears to be very loving and supportive of patient. in reviewing patient's meds, she states she doesn't take anything more than twice a day because if it is ordered more, she gets confused with what she is taking so she only takes things order tid or qid twice a day. saline lock is started in left forearm w/20 ga intracath without difficulty, pt kellie well. education is given as documented. patient denies questions. pneumatics are on bilat calves. pt kellie well. patient states she has been falling at home. has been using a cane, but the Dr has given her a Rx for a walker which she has not gotten yet. call light in reach. patient rests quietly. report is given to DESHAUN Ponce.
[2017-05-18 21:30] LABS: BILIRUBIN URINE NEGATIVE (NEGATIVE); BLOOD URINE 250 /UL (NEGATIVE); COLOR URINE YELLOW (YELLOW); GLUCOSE URINE 1000 mg/dL (NEGATIVE); KETONE URINE NEGATIVE (NEGATIVE); LEUKOCYTES URINE 25 /UL (NEGATIVE); NITRITE URINE NEGATIVE (NEGATIVE); PROTEIN URINE NEGATIVE (NEGATIVE); SPEC GRAVITY URINE 1.005 (1.003-1.035); TURBIDITY URINE CLEAR (CLEAR); UROBILINOGEN URINE NORMAL (NORMAL)
[2017-05-18 21:39] LABS: BACTERIA URINE MODERATE (NEGATIVE); RBC URINE 0-2 #/HPF (NEGATIVE)
[2017-05-18 21:46] LABS: ALBUMIN 3.1 gm/dL (3.5-5.0); CALCIUM 8.4 mg/dL (8.5-10.5); CREATININE 1.7 mg/dL (0.5-1.1); TOTAL BILIRUBIN 0.3 mg/dL (0.0-1.5); TOTAL PROTEIN 6.9 g/dL (6.0-8.4)
[2017-05-18 21:47] LABS: ANION GAP 12.5 (10.0-19.0)
[2017-05-18 21:48] LABS: POTASSIUM 3.5 mMol/L (3.7-5.1)
[2017-05-19 05:34] LABS: BASOPHIL # 0.1 K/uL (0.0-0.2); BASOPHIL % 1.1 %; EOSINOPHIL # 0.3 K/uL (0.0-0.5); HEMATOCRIT 31.9 % (33.0-46.0); HEMOGLOBIN 11.6 g/dL (10.0-15.0); IMMATURE GRANULOCYTE # 0.2 K/uL (0.0-0.3); IMMATURE GRANULOCYTE % 4.3 %; LYMPHOCYTE # 0.6 K/uL (0.8-4.0); LYMPHOCYTE % 11.4 %; MCH 33.3 pg (27.0-34.0); MCHC 36.4 gm/dL (32.0-36.5); MCV 91.7 fl (83.0-98.0); MONOCYTE # 0.5 K/uL (0.0-1.0); MONOCYTE % 8.4 %; MPV 10.9 fl (9.4-12.4); NEUTROPHIL # (ANC) 3.7 K/uL (1.8-7.8); NEUTROPHIL % 68.8 %; NRBC % 0 /100WBC (0-0.00); PLATELET COUNT 272 K/uL (150-450); RBC 3.48 M/uL (3.50-5.50); WBC 5.3 K/uL (4.0-11.0)
[2017-05-19 05:35] LABS: RDW-CV 15.4 % (11.9-14.6)
[2017-05-19 05:49] LABS: ALBUMIN 2.9 gm/dL (3.5-5.0); ANION GAP 12.8 (10.0-19.0); CALCIUM 8.5 mg/dL (8.5-10.5); CREATININE 0.9 mg/dL (0.5-1.1); MAGNESIUM 2.3 mg/dL (1.8-2.6); PHOSPHORUS 1.3 mg/dL (2.5-4.9)
[2017-05-19 05:50] LABS: POTASSIUM 3.8 mMol/L (3.7-5.1)
--- NOTE | 2017-05-19 06:38 | NUR ---
Significant Event: Patient is alert/oriented x3. Dr. Simpson wrote orders for ACHS accuchecks with mild sliding scale Novolog and a diabetic diet. Patient's blood glucose checked at HS, which was too high to read on glucometer. Recheck was the same result. Dr. Chavez notified. Venous blood glucose was drawn, which was 815 and result was called to Dr. Chavez. Patient was started on an insulin drip. Dr. Chavez then ordered insulin drip to be shut off once blood glucose levels reached < 200. Around 0345, patient's blood glucose was 188, so insulin drip was shut off and 50 units of Levemir was given per Dr. Chavez's orders. IV KCl and IV magnesium replaced last night. NS infusing at 175 mL/hr x3 liters, patient currently on 2nd liter. Patient's vital signs have been stable and she is on room air. Complains of discomfort in her legs at times. She has slept throughout most of the night. Follow up: Continue to monitor per plan of care.
--- NOTE | 2017-05-19 12:30 | NUR ---
Introduced self and role of care management to patient, her and a friend. Patient lives in [place] with her . Patient plans home when ready for discharge and says told her probably tomorrow. Patient says her legs hurt alot at home and not able to move long distances. Says her PCP Dr. Cavazos has gotten her a walker and she expects it to be at her home when she gets home. She lives at [facility], her apartment is ground level and handicapped accessible. They have a noon meal M- and she usually has her noon meal there. She says her glucose monitor is not working and so has not been checking her blood sugar. She says her insurance has quit paying for the strips and they get expensive. Talked to her about the importance of checking her blood sugar. able to assist at home but he does work outside the home. She does have 3 children. One is an adult and the other 2 are teenagers and live with their dad. Did talk to patient's nurse about life skills educator being notified about here meter. Nurse says life skills educator was here, but she doesn't know what they talked about. She says life skills educator said she was coming back. Denies other discharge needs at this time. Will follow.
[2017-05-19 15:13] LABS: ANION GAP 10.2 (10.0-19.0); CALCIUM 8.6 mg/dL (8.5-10.5); CREATININE 1.2 mg/dL (0.5-1.1); POTASSIUM 4.2 mMol/L (3.7-5.1)
--- NOTE | 2017-05-19 16:18 | NUR ---
Significant Event: PT UP HALLS, TELE PORTABLE ON. PT SHOWERED TODAY. TYLENOL FOR LEGS BEING SORE, AND DR GAVE EXTRA NEURONTIN. DIFLUCAN FOR ITCHY VAGINAL. BMP/MG BETTER AT 1400 TODAY. IVF LAST BAG ALMOST DONE. BG 200-300S TODAY. PT HELPS PT WITH NEEDS. Follow up:
--- NOTE | 2017-05-19 16:21 | NUR ---
Diabetes center note: 1300 Spoke to patient briefly as she was eating lunch. A1C was 11.9 % Provided the Diabetes Management booklet and Survival Skills checklist, encouraged patient to complete and will assess educational needs. Patient states she needs a new meter, Frida Contour meter provided. Will have CDE see in a.m.
--- NOTE | 2017-05-20 03:21 | NUR ---
Significant Event: A/O x3. Afebrile. Denies pain. VSS on RA. BS 323, gave 6 units of novolog. Up ad charles in room. IV fluids discontinued. at bedside. Follow up: Possible discharge today.
[2017-05-20 07:19] LABS: CALCIUM 8.2 mg/dL (8.5-10.5); CREATININE 1.1 mg/dL (0.5-1.1)
[2017-05-20 07:47] LABS: ANION GAP 10.1 (10.0-19.0); POTASSIUM 4.1 mMol/L (3.7-5.1)
--- NOTE | 2017-05-20 09:06 | NUR ---
Diabetes Consult; Patient is well known to me from previous admissions. Patient with poorly controlled diabetes. Current A1C is 11.9%. The patient reports her primary care provider is Dr. Ton Cavazos at [facility]. The patient reports being frustrated with her high blood sugars and indicates that prior to presenting to the clinic her blood sugar was 189. She states that upon arrival her blood sugar was "over 500". The patient was given a new glucometer and several test strips. She was encouraged to consistently take her long acting insulin and avoiding omiting doses. She was previously seen in the [facility] by KAYY Ley and had a history of missing appointments. The patient reports wanting to reestablish care with Jil and explore the option of an insulin pump. The patient has not done well with carb counting in the past, as required for an insulin pump. Encouraged the patient to discuss the pump and having Jil take care of her diabetes in follow up with Dr. Butler. The patient's is at bedside. Denies any needs or concerns.
--- NOTE | 2017-05-20 16:41 | NUR ---
Significant Event: pt up amb more in halls, legs better. Pt own walker here. Tele dcd. BG 400s today, insulin increased to aggressive. Levimir 50u/bid. Tylenol given at 1500. Powder for periarea and diflucan. Pt will f/u her family dr about her incont.urine prob. Follow up:
--- NOTE | 2017-05-21 05:24 | NUR ---
Significant Event: PT A/O X3 VSS. SBP 110-130 HR 80'S SATS 97% RA. PT IS ACCU CHECKS TID WITH AGGRESSIVE S/S PT RECEIVED 50 UNITS OF LEVEMIR AT HS. PT ATE WELL AT MEAL. PT IS GIVING HERSELF INSULIN SHOTS. PT C/O LEG PAIN 05/20 AND GIVEN PRN TYLENOL Q6HR WITH NO RELIEF PER PT. SHE DOES HAVE CRONIC LEG PAIN. IV SL LEFT FOREARM. KILO MAY BE COMING BY TO DO ANOTHER DIABETIC CONSULT THIS AM. PT WAS EMOTIONAL AT TIMES ABOUT HER CHILDREN. PT MAY DISCHARGE TODAY AND WOULD LIKE A SHOWER THIS AM. Follow up: FOLLOW CARE PLAN
[2017-05-21 06:25] LABS: ANION GAP 13.8 (10.0-19.0); CALCIUM 8.6 mg/dL (8.5-10.5); CREATININE 1.2 mg/dL (0.5-1.1); POTASSIUM 3.8 mMol/L (3.7-5.1)
--- NOTE | 2017-05-22 05:12 | NUR ---
Significant Event: PT A/O X3. VSS. SBP 100-120 HR 95-100 SATS 92% ON RA. PT DENIES PAIN. SLEPT THROUGH THE NIGHT. PT ACCU CHECKS Q6HR WITH AGGRESIVE SLIDING SCALE AND 10 UNITS WITH EVERY MEAL. PT GIVEN 55 UNITS OF LEVEMIR AT HS. PT BLOOD SUGAR AT 2300 WAS 288 10 UNITS NOVOLOG GIVEN AND AT 0500 BLOOD SUGAR OF 317 AND 12 UNITS OF NOVOLOG GIVEN, PT HAD BEEN SNACKING ON CHIPS IN ROOM BROUGHT IN BY AND HAD 2 SUPPER TRAYS WHICH SHE ATE ALL OF THOSE MEALS, BEFORE GOING TO BED. PT WAS EMOTIONAL AT BEGINING OF SHIFT BECAUSE OF SOME FAMLIY ISSUES, BUT THEN CALMED THE NIGHT WENT ON. STAYED IN ROOM WITH PT ALL SHIFT. IV IN LEFT FOREARM SL. PT MAY DISCHARGE TODAY. Follow up: FOLLOW CARE PLAN.
[2017-05-22] MEDS ORDERED: NEURONTIN100 MG PO (14:21)
[2017-05-22] MEDS ORDERED: LEVAQUIN750 MG PO (14:25)
[2017-05-22] MEDS ORDERED: NYSTATIN1 EAC1 (14:29)
--- NOTE | 2017-05-22 15:55 | NUR ---
1540 PT DISMISSED TO HOME WITH PER TAXI. AT TIME OF DC PT IS A/O PINK WARM AND DRY, STEADY ON FEET WHEN UP. IV TO LT FA DC'D CATH INTACT. LUNGS ARE CLEAR ABDOMEN IS SOFT AND NONTENDER WITH PRESENT BOWEL SOUNDS. PULSES ARE STRONG SHE HAS NO EDEMA. DISMISSAL INSTRUCTIONS, MEDICATION INSTRUCTIONS, PRESCRIPTIONS FOLLOW UP CARE AND APPOINTMENTS ALL WENT OVER WITH PT UN DETAIL. PT VERBALIZES UNDERSTANDING. W/C TO FRONT WEST T[employer] LOB[employer] DOOR FOR DC TO HOME PER TAXI.
== END 2017-05-22 15:40 | disposition disaster alternative care site (69) | DRG 683 ==
LOC: GPCU 17:53
PROVIDERS: Internal Medicine; ADMIT Internal Medicine
DX: N17.9 Acute kidney failure, unspecified (principal); K86.1 Other chronic pancreatitis; E11.40 Type 2 diabetes mellitus with diabetic neuropathy, unspecified; E11.65 Type 2 diabetes mellitus with hyperglycemia; B37.3 Candidiasis of vulva and vagina; N39.0 Urinary tract infection, site not specified; E86.0 Dehydration; F32.9 Major depressive disorder, single episode, unspecified; G40.909 Epilepsy, unspecified, not intractable, without status epilepticus; Z91.14 Patient's other noncompliance with medication regimen; Z79.4 Long term (current) use of insulin; F17.290 Nicotine dependence, other tobacco product, uncomplicated; E87.6 Hypokalemia
CPT/HCPCS: J3475; J3480; J7030; J7040; J7050